=== PATIENT | male | born 1955 | race Caucasian/White ===

== ENCOUNTER → 2016-09-27 | Outpatient (CLI) | payer MEDICARE, MEDICAID ==
[~2016-09-27] MED LIST: ANTIHISTAMINE PO; BACL10TA2 PO; DILT240C PO; FLUO20CA19 PO; GABA-282 PO; HYDR-3716 PO; LEVA750T7 PO; RANI150T PO
--- NOTE | 2016-09-27 11:02 | REP ---
CERVICAL SPINE SERIES: Full cervical spine series performed with seven views obtained. There is no compression fracture. There is straightening of the normal cervical lordosis. There is limited motion with flexion and extension. Bridging osteophyte is seen at C3-4. There is mild spurring at C5-C7. There is moderate disc space narrowing at C4-5, C5-6, and C6-7. There is diffuse sclerosis and spurring at the posterior facet joints. Uncovertebral and facet spurring appears to cause mild bilateral foraminal narrowing at C4-5 and C5-6 and moderate narrowing on the left at C6-7. IMPRESSION: Degenerative changes as above. Straightening with limited motion may indicate spasm. Signed by Hema Wall MD 09/27/2016 01:13 P
--- NOTE | 2016-09-27 11:41 | REP ---
Lumbar spine seven views including flexion and extension: Vertebral body heights, interspacing alignment are normal. There is no spondylolysis. There is no spondylolisthesis. There is no listhesis on the lateral views in extension. The pedicles, facets and sacroiliac articulations are unremarkable. There is internal fixation of the pelvis on the right. Impression: Essentially negative lumbar spine. Signed by Hema Bronson MD 09/27/2016 11:33 A
== END ==
LOC: M RAD 08:46
PROVIDERS: ATTEND Neurological Surgery
DX: M47.892 Other spondylosis, cervical region (principal); M47.896 Other spondylosis, lumbar region

== ENCOUNTER → 2017-02-03 | Outpatient (REF) | payer MEDICARE, MEDICAID | LOC: M LABDRAW1 11:39 | PROVIDERS: ATTEND Physical Medicine & Rehabilitation | DX: M50.30 Other cervical disc degeneration, unspecified cervical region (principal); Z79.899 Other long term (current) drug therapy ==

== ENCOUNTER → 2017-06-28 | Outpatient (CLI) | payer MEDICARE, MEDICAID | LOC: M CLY 09:22 | DX: J44.9 Chronic obstructive pulmonary disease, unspecified (principal); R91.8 Other nonspecific abnormal finding of lung field; F34.1 Dysthymic disorder; I48.91 Unspecified atrial fibrillation; H91.93 Unspecified hearing loss, bilateral; H53.9 Unspecified visual disturbance; F17.200 Nicotine dependence, unspecified, uncomplicated; Z79.899 Other long term (current) drug therapy | CPT/HCPCS: 71046; 84443 ==

== ENCOUNTER → 2017-06-28 | Outpatient (REF) | payer MEDICARE, MEDICAID ==
[2017-06-28 12:22] LABS: BASO % 0.4 % (0.0-1.0); EOS # 0.1 10^3/uL (0.0-0.50); EOS % 1.2 % (0.0-3.0); HEMATOCRIT 45.6 % (42.0-52.0); HEMOGLOBIN 15.2 g/dl (13.5-17.5); IMMATURE GRANULOCYTE % 0.4 % (0-3.0); LYMPH # 1.8 10^3/uL (1.5-4.5); LYMPH % 21.7 % (24.0-44.0); MEAN CORPUSCULAR HEMOGLOBIN 31.6 pg (27.0-33.0); MEAN CORPUSCULAR HGB CONC 33.3 g/dl (32.0-36.5); MEAN CORPUSCULAR VOLUME 94.8 fl (80.0-96.0); MONO # 0.8 10^3/uL (0.0-0.8); MONO % 9.1 % (0.0-5.0); NEUTROPHILS # 5.6 10^3/uL (1.8-7.7); NEUTROPHILS % 67.2 % (36.0-66.0); PLATELET COUNT, AUTOMATED 275 10^3/uL (150-450); RED BLOOD COUNT 4.81 10^6/uL (4.30-6.10); RED CELL DISTRIBUTION WIDTH 13.3 % (11.5-14.5); WHITE BLOOD COUNT 8.4 10^3/uL (4.0-10.0)
[2017-06-28 12:48] LABS: ALBUMIN 4.4 GM/DL (3.2-5.2); ALBUMIN/GLOBULIN RATIO 1.33 (1.00-1.93); ALKALINE PHOSPHATASE 97 U/L (45-117); ALT/SGPT 26 U/L (12-78); ANION GAP 5 MEQ/L (8-16); AST/SGOT 17 U/L (7-37); BILIRUBIN,TOTAL 0.4 MG/DL (0.2-1.0); BLOOD UREA NITROGEN 15 MG/DL (7-18); CALCIUM LEVEL 9.2 MG/DL (8.8-10.2); CARBON DIOXIDE LEVEL 31 MEQ/L (21-32); CHLORIDE LEVEL 105 MEQ/L (98-107); CHOLESTEROL LEVEL 221 MG/DL (<200); CHOLESTEROL RISK RATIO 3.157 (<5); CREATININE FOR GFR 0.72 MG/DL (0.70-1.30); FREE T4 1.05 NG/DL (0.76-1.46); GLOMERULAR FILTRATION RATE > 60.0 (>49); GLUCOSE, FASTING 90 MG/DL (70-100); HDL CHOLESTEROL 70 MG/DL (>40); NON-HDL-C 151 MG/DL; POTASSIUM SERUM 4.4 MEQ/L (3.5-5.1); SODIUM LEVEL 141 MEQ/L (136-145); TOTAL PROTEIN 7.7 GM/DL (6.4-8.2); TRIGLYCERIDES LEVEL 140 MG/DL (<150)
== END ==
LOC: M SFHCCLAY 08:46
DX: J44.9 Chronic obstructive pulmonary disease, unspecified (principal); F34.1 Dysthymic disorder; I48.91 Unspecified atrial fibrillation; H91.93 Unspecified hearing loss, bilateral; H53.9 Unspecified visual disturbance; F17.200 Nicotine dependence, unspecified, uncomplicated; Z79.899 Other long term (current) drug therapy
CPT/HCPCS: 84443

== ENCOUNTER → 2017-07-08 | Outpatient (CLI) | payer MEDICARE, MEDICAID | LOC: M RAD 08:38 | DX: S22.000A Wedge compression fracture of unspecified thoracic vertebra, initial encounter for closed fracture (principal); X58.XXXA Exposure to other specified factors, initial encounter; Y92.9 Unspecified place or not applicable | CPT/HCPCS: 72146 ==

== ENCOUNTER → 2017-12-20 | Outpatient (REF) | payer MEDICARE, MEDICAID ==
[2017-12-27 09:46] LABS: SUMMARY SEE SEPARATE REPORT
== END ==
LOC: M LABDRAW1 12:13
DX: Z51.81 Encounter for therapeutic drug level monitoring (principal); Z79.891 Long term (current) use of opiate analgesic
CPT/HCPCS: 80307

== ENCOUNTER → 2018-03-14 | Outpatient (REF) | payer MEDICARE, MEDICAID ==
[~2018-03-14] MED LIST changes: -DILT240C PO; +DILT240C47 PO; -GABA-282 PO; +GABA-843 PO
[2018-03-14 12:13] LABS: BASO # 0.1 10^3/uL (0.0-0.2); BASO % 0.6 % (0.0-1.0); EOS # 0.1 10^3/uL (0.0-0.50); EOS % 1.1 % (0.0-3.0); HEMATOCRIT 41.6 % (42.0-52.0); HEMOGLOBIN 14.1 g/dl (13.5-17.5); LYMPH # 2.1 10^3/uL (1.5-4.5); LYMPH % 25.7 % (24.0-44.0); MEAN CORPUSCULAR HEMOGLOBIN 32.3 pg (27.0-33.0); MEAN CORPUSCULAR HGB CONC 33.9 g/dl (32.0-36.5); MEAN CORPUSCULAR VOLUME 95.4 fl (80.0-96.0); MONO # 0.9 10^3/uL (0.0-0.8); MONO % 10.4 % (0.0-5.0); NEUTROPHILS # 5.1 10^3/uL (1.8-7.7); PLATELET COUNT, AUTOMATED 232 10^3/uL (150-450); RED BLOOD COUNT 4.36 10^6/uL (4.30-6.10); WHITE BLOOD COUNT 8.3 10^3/uL (4.0-10.0)
[2018-03-14 13:13] LABS: ALT/SGPT 26 U/L (12-78); BILIRUBIN,TOTAL 0.2 MG/DL (0.2-1.0); BLOOD UREA NITROGEN 19 MG/DL (7-18); CALCIUM LEVEL 9.2 MG/DL (8.8-10.2); CARBON DIOXIDE LEVEL 27 MEQ/L (21-32); CHLORIDE LEVEL 105 MEQ/L (98-107); CHOLESTEROL LEVEL 179 MG/DL (<200); CHOLESTEROL RISK RATIO 2.632 (<5); CREATININE FOR GFR 0.79 MG/DL (0.70-1.30); FREE T4 1.11 NG/DL (0.76-1.46); GLOMERULAR FILTRATION RATE > 60.0 (>49); GLUCOSE, FASTING 93 MG/DL (70-100); HDL CHOLESTEROL 68 MG/DL (>40); LDL CHOLESTEROL 96 MG/DL (<100); NON-HDL-C 111 MG/DL; POTASSIUM SERUM 4.9 MEQ/L (3.5-5.1); SODIUM LEVEL 137 MEQ/L (136-145); TOTAL PROTEIN 6.8 GM/DL (6.4-8.2); TRIGLYCERIDES LEVEL 76 MG/DL (<150)
== END ==
LOC: M SFHCCLAY 09:38
PROVIDERS: ATTEND Nurse Practitioner Family
DX: I10 Essential (primary) hypertension (principal); F34.1 Dysthymic disorder; I48.91 Unspecified atrial fibrillation; J44.9 Chronic obstructive pulmonary disease, unspecified

== ENCOUNTER → 2018-03-23 | Outpatient (CLI) | payer MEDICARE, MEDICAID ==
--- NOTE | 2018-03-23 11:03 | REP ---
Low-dose lung cancer screening chest CT without contrast: History: Smoker. Greater than 40 pack year history. Comparison chest CT study January 14, 2016. Dose reduction was performed utilizing CARE dose with automated adjustment of the kV and MAS according to patient size; iterative reconstruction, automated exposure control, as well as adaptive dose shielding. CT findings: The lungs are hyperinflated consistent with some degree of emphysema or COPD. There is linear fibrosis in the left lower lobe which is unchanged. There is a benign stable perifissural nodule on the left in the major fissure on page 55 of 123 in series 201 of today's study. This is unchanged from January 14, 2016. There is minimal pleuroparenchymal fibrosis at the right lung apex. No new pulmonary nodule is seen. No mass lesion is observed. No endobronchial disease is appreciated. Impression: Lung-RADS category 2 benign findings. Repeat screening exam suggested 1 year. Electronically Signed by Fabio Bae MD 03/23/2018 06:04 P
== END ==
LOC: M RAD 08:49
PROVIDERS: ATTEND Nurse Practitioner Family
DX: Z12.2 Encounter for screening for malignant neoplasm of respiratory organs (principal); F17.210 Nicotine dependence, cigarettes, uncomplicated

== ENCOUNTER 2019-02-10 09:58 | Emergency (ER) | payer MEDICARE, MEDICAID ==
[~2019-02-10] VITALS: Ht 185.4 cm; Wt 70.4 kg
[2019-02-10] MEDS ORDERED: BREO1INH3 (10:15)
[2019-02-10] MEDS ORDERED: GABA600T4 (10:15)
[2019-02-10] MEDS ORDERED: TIZA4TAB4 (10:15)
[2019-02-10] MEDS ORDERED: VOLT1GEL15 TOP (10:27)
--- NOTE | 2019-02-10 11:30 | REP ---
PA CHEST WITH RIGHT RIBS: 02/10/2019. COMPARISON: Two-view chest, 06/28/2017. CLINICAL HISTORY: Right shoulder pain. FINDINGS: PA CHEST: The lung vidales hyperinflated with changes of COPD. There is some linear subsegmental atelectatic change on the right. There are old post-traumatic changes of the right posterior mid 6th and 7th ribs as before. No effusion or definite infiltrate. Heart and mediastinal contours normal. The aorta is mildly tortuous and calcified at the arch without aneurysm. There is pulmonary artery hypertension consistent with COPD. RIGHT RIBS: Posterior mid right chest, 6th and 7th healed rib fractures. No new or acute fractures. Visualized clavicle, scapula, and humerus unremarkable. Thoracic spine without acute findings. Posterior rib articulations intact. IMPRESSION: 1. No new or acute rib fractures with multiple old right rib fractures involving the posterior right 6th and 7th ribs. 2. Clavicle, scapula, and humerus grossly intact. 3. Changes of COPD with pulmonary artery hypertension and some minimal subsegmental atelectatic change right mid lung zone. Electronically Signed by Larry Savage MD 02/10/2019 07:52 P
--- NOTE | 2019-02-10 11:31 | REP ---
RIGHT SHOULDER, COMPLETE: 02/10/2019. COMPARISON: PA chest with right rib series, 02/10/2019. FINDINGS: Three views show the AC joint without widening of the joint space or elevation of the clavicle. There is no clavicular, scapular, or humeral fracture. I see no subluxation, dislocation of the humeral head. There are old healed fractures of posterior right 6th and 7th ribs in the midclavicular line. No new or acute finding. IMPRESSION: 1. Some degenerative changes at the shoulder, but no acute fracture. 2. Old healed and remodeled right rib fractures as described. Electronically Signed by Larry Savage MD 02/10/2019 07:52 P
[2019-02-10] MEDS ORDERED: LIDO5DIS41 TOP (11:44)
[2019-02-10 12:03] VITALS: BP 119/73
== END 2019-02-10 12:02 | disposition home or self-care (01) ==
LOC: M ED 09:58
DX: S46.811A Strain of other muscles, fascia and tendons at shoulder and upper arm level, right arm, initial encounter (principal); S40.011A Contusion of right shoulder, initial encounter; S20.211A Contusion of right front wall of thorax, initial encounter; Y04.2XXA Assault by strike against or bumped into by another person, initial encounter; Y92.098 Other place in other non-institutional residence as the place of occurrence of the external cause; F17.200 Nicotine dependence, unspecified, uncomplicated; F12.10 Cannabis abuse, uncomplicated; F10.10 Alcohol abuse, uncomplicated; Z87.81 Personal history of (healed) traumatic fracture; Z79.899 Other long term (current) drug therapy; Z79.51 Long term (current) use of inhaled steroids

== ENCOUNTER → 2019-05-03 | Outpatient (REF) | payer MEDICARE, MEDICAID ==
[~2019-05-03] MED LIST changes: +BREO1INH3; -FLUO20CA19 PO; +FLUO20CA22 PO; +GABA600T4; +LIDO5DIS41 TOP; +TIZA4TAB4; +VOLT1GEL15 TOP
[2019-05-03 12:43] LABS: BASO % 0.4 % (0.0-1.0); EOS # 0.1 10^3/uL (0.0-0.5); HEMATOCRIT 48.9 % (42.0-52.0); HEMOGLOBIN 15.9 g/dl (13.5-17.5); LYMPH # 2.3 10^3/uL (1.5-5.0); LYMPH % 29.8 % (24.0-44.0); MEAN CORPUSCULAR HEMOGLOBIN 31.8 pg (27.0-33.0); MEAN CORPUSCULAR HGB CONC 32.5 g/dl (32.0-36.5); MEAN CORPUSCULAR VOLUME 97.8 fl (80.0-96.0); MONO # 0.9 10^3/uL (0.0-0.8); MONO % 11.1 % (0.0-5.0); NEUTROPHILS # 4.4 10^3/uL (1.5-8.5); NEUTROPHILS % 57.4 % (36.0-66.0); PLATELET COUNT, AUTOMATED 315 10^3/uL (150-450); WHITE BLOOD COUNT 7.7 10^3/uL (4.0-10.0)
[2019-05-03 12:57] LABS: ALBUMIN 4.4 GM/DL (3.2-5.2); ALT/SGPT 27 U/L (12-78); BILIRUBIN,TOTAL 0.3 MG/DL (0.2-1.0); BLOOD UREA NITROGEN 16 MG/DL (7-18); CALCIUM LEVEL 9.6 MG/DL (8.8-10.2); CARBON DIOXIDE LEVEL 30 MEQ/L (21-32); CHLORIDE LEVEL 107 MEQ/L (98-107); CHOLESTEROL LEVEL 239 MG/DL (<200); CREATININE FOR GFR 0.82 MG/DL (0.70-1.30); GLOMERULAR FILTRATION RATE > 60.0 (>49); GLUCOSE, FASTING 105 MG/DL (70-100); HDL CHOLESTEROL 81 MG/DL (>40); LDL CHOLESTEROL 139 MG/DL (<100); NON-HDL-C 158 MG/DL; POTASSIUM SERUM 4.8 MEQ/L (3.5-5.1); SODIUM LEVEL 140 MEQ/L (136-145); TOTAL PROTEIN 7.8 GM/DL (6.4-8.2); TRIGLYCERIDES LEVEL 94 MG/DL (<150)
== END ==
LOC: M SFHCCLAY 09:00
PROVIDERS: ATTEND Nurse Practitioner Family
DX: I10 Essential (primary) hypertension (principal); F34.1 Dysthymic disorder; I48.91 Unspecified atrial fibrillation; J44.9 Chronic obstructive pulmonary disease, unspecified
CPT/HCPCS: 80053; 80061; 84439; 84443; 85025; G0103; G0463

== ENCOUNTER → 2019-05-10 | Outpatient (CLI) | payer MEDICARE, MEDICAID ==
--- NOTE | 2019-05-10 08:39 | REPVR ---
PROCEDURE INFORMATION: Exam: CT Lung Cancer Screening Exam date and time: 05/10/2019 7:34 AM Age: 64 years old 64 years year old. Clinical indication: Screening exam; Additional info: Nicotine dependence Additional history: Asymptomatic patient meeting high-risk criteria for lung screening. Follow-up. TECHNIQUE: Imaging protocol: CT volumetric low-dose chest CT without contrast. Lung cancer screening. CTDI volume: 1.1 Total DLP: 47.3 Radiation optimization: All CT scans at this facility use at least one of these dose optimization techniques: automated exposure control; mA and/or kV adjustment per patient size (includes targeted exams where dose is matched to clinical indication); or iterative reconstruction. COMPARISON: No relevant prior studies available. FINDINGS: Lungs: Centrilobular emphysema. Linear atelectasis or scarring in the right upper and left lower lobes. Bibasilar dependent and linear atelectasis. Lung nodules: Nodule 1: Left lung. Stable 0.6 x 0.3 cm solid nodule. Series 201, image 54. Nodule 2: Left lung. Interval increase in the size of a 4-5 mm solid nodule in the left lower lobe. Series 201, image 76. Up to 5 most suspicious nodules are described. Pleural space: Unremarkable. No pneumothorax. No pleural effusion. Heart: Unremarkable. No cardiomegaly. No pericardial effusion. Aorta: Unremarkable. No aortic aneurysm. Lymph nodes: Unremarkable. No enlarged lymph nodes. Bones/joints: Unremarkable. No acute fracture. Soft tissues: Unremarkable. IMPRESSION: Interval increase in the size of a 4-5 mm solid nodule in the left lower lobe. Series 201, image 76. Electronically signed by: Ranjith Isbell On 05/10/2019 08:38:54 AM
== END ==
LOC: M RAD 07:32
PROVIDERS: ATTEND Physician Assistant
DX: Z87.891 Personal history of nicotine dependence (principal)

== ENCOUNTER 2019-11-15 09:02 | Emergency (ER) | payer MEDICARE, MEDICAID ==
[~2019-11-15] VITALS: Ht 185.4 cm; Wt 69.5 kg
[2019-11-15] MEDS ORDERED: PROAAER10 (09:13)
--- NOTE | 2019-11-15 11:32 | REPVR ---
PROCEDURE INFORMATION: Exam: XR Lumbosacral Spine, 4 or 5 Views Exam date and time: 11/15/2019 11:14 AM Age: 64 years old Clinical indication: Low back pain; Additional info: Low back pain; Lifting injury TECHNIQUE: Imaging protocol: XR of the lumbosacral spine, 4 or 5 views. COMPARISON: CR Spine,LS wBENDING MIN 6 VIEWS 09/27/2016 9:33 AM FINDINGS: Vertebrae: Degenerative change of the spine. Mild degenerative endplate changes. Normal alignment. Chronic mild anterior wedging of the T12 vertebral body. No acute fracture is identified. Mild posterior facet joint arthropathy. Other bones/joints: Fixation hardware associated with the right acetabulum. Soft tissues: Unremarkable. Vasculature: Atherosclerotic vascular calcifications. IMPRESSION: No acute lumbar spine abnormality is identified. Electronically signed by: Joanne Funez On 11/15/2019 11:32:08 AM
[2019-11-15] MEDS ORDERED: CODE30TA PO (11:53)
[2019-11-15] MEDS ORDERED: TIZA2CAP PO (11:53)
[2019-11-15 11:55] VITALS: BP 116/74
== END 2019-11-15 12:04 | disposition home or self-care (01) ==
LOC: M ED 09:02
DX: S39.012A Strain of muscle, fascia and tendon of lower back, initial encounter (principal); X50.0XXA Overexertion from strenuous movement or load, initial encounter; Y92.89 Other specified places as the place of occurrence of the external cause; I10 Essential (primary) hypertension; M54.9 Dorsalgia, unspecified; G89.29 Other chronic pain; F41.9 Anxiety disorder, unspecified; F32.9 Major depressive disorder, single episode, unspecified; F17.210 Nicotine dependence, cigarettes, uncomplicated; Z79.899 Other long term (current) drug therapy; Z79.51 Long term (current) use of inhaled steroids

== ENCOUNTER → 2020-01-07 | Outpatient (CLI) | payer MEDICARE, MEDICAID ==
[~2020-01-07] MED LIST changes: +CODE30TA PO; +PROAAER10; +TIZA2CAP PO
--- NOTE | 2020-01-07 08:55 | REP ---
INDICATION: OTHER NONSPECIFIC ABN FINDINGS OF LUNG FIELD FILE ROOM. COMPARISON: Low-dose lung screening CT 05/10/2019, 03/23/2018 TECHNIQUE: Standard noncontrast CT chest with coronal and sagittal reconstructions. FINDINGS: Lung vidales again show hyperinflation and some underlying interstitial changes suggesting COPD, stable. Basilar curvilinear fibrotic change in the left lower lobe medial basal segment and lesser fibrosis in the right medial base. All of this is stable. There is no effusion parenchymal mass. On image 78 there is a 3.8 mm nodular density that may reflect a stable nodule in the left lower lobe seen on image 76 on the previous study versus a small endobronchial secretion. It is unchanged for the past 22 months. The previous small density in image 60 in the May 2019 study is no longer evident on today's exam. On image 55 there is a stable 6 x 3 mm nodule superior segment left lower lobe. Bochdalek's hernias noted posteriorly in the lower lung zones bilaterally left larger than right and stable. The heart is not enlarged and there is no specific chamber enlargement there are some coronary artery calcifications evident. No pericardial calcifications are seen. Atherosclerotic calcifications of the aorta without aneurysm. No pathologic size lymphadenopathy in the mediastinum, izzy, axilla or supraclavicular region. Bones show some degenerative osteophytes in the spine with wedge compression deformity grade 4 and focal kyphosis at T7, grossly unchanged. There is superior endplate depressions at L1 minimally at L2 anteriorly. Sternum, manubrium, visible clavicles, scapula, ribs and humeral heads were unremarkable. No hiatal hernia. That portion of liver included was without a focal lesion no splenomegaly. Adrenal glands and upper poles of kidneys intact no upper abdominal adenopathy or mass visible IMPRESSION: 1. There are 2 stable nodules in the left lower lobe at 3.8 and 6 mm in diameter and 1 nodular density resolved from the previous study May 2019. 2. Underlying COPD with basilar fibrosis, Bochdalek's hernias in the lower lung zones and bullous emphysematous changes. 3. Degenerative changes in the spine and old stable compression deformities. <Electronically signed by Larry Savage > 01/07/20 [id number]
== END ==
LOC: M RAD 08:00
PROVIDERS: ATTEND Physician Assistant
DX: R91.8 Other nonspecific abnormal finding of lung field (principal)

== ENCOUNTER → 2020-05-14 | Outpatient (REF) | payer MEDICARE, MEDICAID ==
[~2020-05-14] MED LIST changes: +GABA-282 PO; -GABA-843 PO
[2020-05-14 12:16] LABS: BASO # 0.1 10^3/uL (0.0-0.2); BASO % 0.8 % (0.0-1.0); EOS # 0.2 10^3/uL (0.0-0.5); EOS % 2.4 % (0.0-3.0); HEMATOCRIT 47.5 % (42.0-52.0); HEMOGLOBIN 15.3 g/dl (13.5-17.5); LYMPH # 1.8 10^3/uL (1.5-5.0); LYMPH % 24.5 % (24.0-44.0); MEAN CORPUSCULAR HEMOGLOBIN 31.2 pg (27.0-33.0); MEAN CORPUSCULAR HGB CONC 32.2 g/dl (32.0-36.5); MEAN CORPUSCULAR VOLUME 96.7 fl (80.0-96.0); MONO # 0.9 10^3/uL (0.0-0.8); NEUTROPHILS # 4.3 10^3/uL (1.5-8.5); NEUTROPHILS % 59.2 % (36.0-66.0); PLATELET COUNT, AUTOMATED 266 10^3/uL (150-450); RED BLOOD COUNT 4.91 10^6/uL (4.30-6.10); WHITE BLOOD COUNT 7.2 10^3/uL (4.0-10.0)
[2020-05-14 12:42] LABS: ALBUMIN 3.9 GM/DL (3.2-5.2); ALT/SGPT 23 U/L (12-78); BILIRUBIN,TOTAL 0.3 MG/DL (0.2-1.0); BLOOD UREA NITROGEN 8 MG/DL (7-18); CALCIUM LEVEL 9.5 MG/DL (8.8-10.2); CARBON DIOXIDE LEVEL 25 MEQ/L (21-32); CHLORIDE LEVEL 105 MEQ/L (98-107); CHOLESTEROL LEVEL 178 MG/DL (<200); CHOLESTEROL RISK RATIO 2.738 (<5); CREATININE FOR GFR 0.88 MG/DL (0.70-1.30); FREE T4 1.09 NG/DL (0.76-1.46); GLOMERULAR FILTRATION RATE > 60.0 (>49); GLUCOSE, FASTING 91 MG/DL (70-100); HDL CHOLESTEROL 65 MG/DL (>40); LDL CHOLESTEROL 99 MG/DL (<100); NON-HDL-C 113 MG/DL; POTASSIUM SERUM 4.9 MEQ/L (3.5-5.1); SODIUM LEVEL 137 MEQ/L (136-145); TOTAL PROTEIN 7.3 GM/DL (6.4-8.2); TRIGLYCERIDES LEVEL 71 MG/DL (<150)
== END ==
LOC: M SFHCCLAY 08:11
PROVIDERS: ATTEND Nurse Practitioner Family
DX: M54.2 Cervicalgia (principal); F34.1 Dysthymic disorder; I10 Essential (primary) hypertension; I48.91 Unspecified atrial fibrillation; J44.9 Chronic obstructive pulmonary disease, unspecified; F17.200 Nicotine dependence, unspecified, uncomplicated
CPT/HCPCS: 80053; 80061; 84439; 84443; 85025; G0463

== ENCOUNTER → 2020-05-21 | Outpatient (CLI) | payer MEDICARE ==
--- NOTE | 2020-05-21 11:01 | REP ---
INDICATION: SMOKER, LUNG CANCER SCREENING COMPARISON: 05/10/2019, 03/23/2018 TECHNIQUE: Axial noncontrast images from the thoracic inlet to the upper abdomen using low-dose lung screening technique (LDCT). FINDINGS: There is a new 4 mm noncalcified nodule in the anterior right upper lobe (series 201; image 39). Previously noted 4 and 3.5 mm mm nodular densities in the left lower lobe and left upper lobe, respectively which represented inspissated material within small bronchi have resolved. No consolidation, further nodule or mass lesion. No pleural effusion. No pneumothorax. Chronic emphysematous changes with scattered scarring and bronchiectasis again noted. Posterior left basilar atelectasis identified on current examination. IMPRESSION: 1. New 4 mm noncalcified nodule in the anterior right upper lobe warrants six-month follow-up examination. 2. Previously noted densities have resolved and likely represented small amount of inspissated endobronchial material. 3. Small amount of posterior basilar dependent atelectasis in the left lower lobe. <Electronically signed by Osmani Wilkinson > 05/21/20 [id number]
== END ==
LOC: M RAD 09:27
PROVIDERS: ATTEND Nurse Practitioner Family
DX: Z12.2 Encounter for screening for malignant neoplasm of respiratory organs (principal); R91.8 Other nonspecific abnormal finding of lung field; F17.210 Nicotine dependence, cigarettes, uncomplicated

== ENCOUNTER 2020-11-02 12:29 | Emergency (ER) | payer MEDICARE, MEDICAID ==
[~2020-11-02] VITALS: Ht 185.4 cm; Wt 71.2 kg
[~2020-11-02 12:29] MED LIST changes: +TIZA10TA; -TIZA4TAB4
[2020-11-02 13:47] LABS: BASO % 0.3 % (0.0-1.0); EOS # 0.1 10^3/uL (0.0-0.5); EOS % 1.5 % (0.0-3.0); HEMATOCRIT 40.2 % (42.0-52.0); HEMOGLOBIN 13.2 g/dl (13.5-17.5); LYMPH # 1.5 10^3/uL (1.5-5.0); LYMPH % 16.9 % (24.0-44.0); MEAN CORPUSCULAR HEMOGLOBIN 32.1 pg (27.0-33.0); MEAN CORPUSCULAR HGB CONC 32.8 g/dl (32.0-36.5); MEAN CORPUSCULAR VOLUME 97.8 fl (80.0-96.0); MONO # 0.9 10^3/uL (0.0-0.8); MONO % 10.4 % (2.0-8.0); NEUTROPHILS # 6.2 10^3/uL (1.5-8.5); NEUTROPHILS % 70.6 % (36.0-66.0); PLATELET COUNT, AUTOMATED 239 10^3/uL (150-450); RED BLOOD COUNT 4.11 10^6/uL (4.30-6.10); WHITE BLOOD COUNT 8.8 10^3/uL (4.0-10.0)
[2020-11-02 14:13] LABS: BLOOD UREA NITROGEN 12 MG/DL (7-18); CALCIUM LEVEL 8.8 MG/DL (8.8-10.2); CARBON DIOXIDE LEVEL 30 MEQ/L (21-32); CHLORIDE LEVEL 111 MEQ/L (98-107); CREATININE FOR GFR 0.66 MG/DL (0.70-1.30); GLOMERULAR FILTRATION RATE > 60.0 (>49); GLUCOSE, FASTING 108 MG/DL (70-100); MAGNESIUM LEVEL 2.2 MG/DL (1.8-2.4); POTASSIUM SERUM 4.3 MEQ/L (3.5-5.1); SODIUM LEVEL 144 MEQ/L (136-145)
[2020-11-02 14:45] VITALS: BP 130/68
== END 2020-11-02 15:13 | disposition home or self-care (01) ==
LOC: M ED 12:29
DX: F41.0 Panic disorder [episodic paroxysmal anxiety] (principal); E78.5 Hyperlipidemia, unspecified; G62.9 Polyneuropathy, unspecified; Z79.899 Other long term (current) drug therapy; F17.210 Nicotine dependence, cigarettes, uncomplicated; F12.20 Cannabis dependence, uncomplicated

== ENCOUNTER → 2021-02-25 | Outpatient (REF) | payer MEDICARE, MEDICAID | LOC: M SFHCCLAY 11:01 | PROVIDERS: ATTEND Nurse Practitioner Family | DX: R06.02 Shortness of breath (principal) | CPT/HCPCS: 87798; 87804; G0463 ==

== ENCOUNTER 2021-06-08 13:50 | Emergency (ER) | payer MEDICARE, MEDICAID ==
[~2021-06-08] VITALS: Ht 185.4 cm; Wt 63.6 kg
[2021-06-08 13:55] VITALS: BP 122/84
== END 2021-06-08 17:36 | disposition left against medical advice (07) ==
LOC: M ED 13:50
DX: Z53.21 Procedure and treatment not carried out due to patient leaving prior to being seen by health care provider (principal)

== ENCOUNTER 2021-07-23 17:40 | Inpatient (IN) | payer MEDICARE, MEDICAID ==
[~2021-07-23] VITALS: Ht 182.9 cm; Wt 61.9 kg
[~2021-07-23 17:40] MED LIST changes: +NEUR600T PO; +TREL1AER PO
[2021-07-23] MEDS: METOPROLOL 5 MG/5 ML VIAL IV SCH ×3 (18:43→18:59)
[2021-07-23 18:47] LABS: VENOUS BASE EXCESS 3.3 (-2.0-2.0); VENOUS HCO3 31.2 MEQ/L (23.0-27.0); VENOUS O2 SATURATION 71.8 % (60.0-80.0); VENOUS PARTIAL PRESSURE CO2 61.3 mmHg (38.0-50.0); VENOUS PARTIAL PRESSURE O2 40.3 mmHg (30.0-50.0); VENOUS PH 7.324 UNITS (7.330-7.430); VENOUS STANDARD HCO3 26.7 MEQ/L
[2021-07-23 18:52] LABS: BASO % 0.4 % (0.0-1.0); EOS # 0.1 10^3/uL (0.0-0.5); EOS % 0.5 % (0.0-3.0); HEMATOCRIT 44.8 % (42.0-52.0); HEMOGLOBIN 14.3 g/dl (13.5-17.5); LYMPH # 1.2 10^3/uL (1.5-5.0); LYMPH % 12.9 % (24.0-44.0); MEAN CORPUSCULAR HEMOGLOBIN 29.4 pg (27.0-33.0); MEAN CORPUSCULAR HGB CONC 31.9 g/dl (32.0-36.5); MONO # 1.2 10^3/uL (0.0-0.8); MONO % 12.4 % (2.0-8.0); NEUTROPHILS % 73.5 % (36.0-66.0); PLATELET COUNT, AUTOMATED 328 10^3/uL (150-450); RED BLOOD COUNT 4.87 10^6/uL (4.30-6.10); WHITE BLOOD COUNT 9.6 10^3/uL (4.0-10.0)
[2021-07-23] MEDS ORDERED: IPRATROPIUM 0.5MG/ALBUTEROL 2.5MG INH SOL UD 3ML (DUONEB) NEB ONE (18:55)
[2021-07-23 19:06] LABS: INR 1.02; PROTHROMBIN TIME 13.8 SECONDS (12.7-14.5)
[2021-07-23 19:07] LABS: PARTIAL THROMBOPLASTIN TIME 31.7 SECONDS (25.9-37.0)
[2021-07-23 19:09] LABS: D-DIMER QUANT 778.32 ng/ml (<500)
[2021-07-23 19:45] LABS: ALT/SGPT 17 U/L (12-78); BILIRUBIN,DIRECT < 0.1 MG/DL (0.0-0.2); BILIRUBIN,TOTAL 0.4 MG/DL (0.2-1.0); BLOOD UREA NITROGEN 13 MG/DL (7-18); CALCIUM LEVEL 8.9 MG/DL (8.8-10.2); CARBON DIOXIDE LEVEL 33 MEQ/L (21-32); CHLORIDE LEVEL 103 MEQ/L (98-107); CREATININE FOR GFR 0.68 MG/DL (0.70-1.30); FREE T4 1.35 NG/DL (0.76-1.46); GLOMERULAR FILTRATION RATE > 60.0 (>49); GLUCOSE, FASTING 100 MG/DL (70-100); NT-PRO BNP 1391 PG/ML (<125); POTASSIUM SERUM 4.2 MEQ/L (3.5-5.1); SODIUM LEVEL 139 MEQ/L (136-145); TOTAL PROTEIN 7.2 GM/DL (6.4-8.2)
[2021-07-23] MEDS ORDERED: ISOVUE-370 76% 100ML VIAL As Ordered ONE (19:53)
[2021-07-23] MEDS ORDERED: DIGOXIN INJ 0.5 MG/2 ML AMP (J1160) As Ordered ONE ×2 (21:37→21:40)
[2021-07-23] MEDS ORDERED: ACETAMINOPHEN TAB 650MG DOSE (2X325MG) PO PRN (22:20)
[2021-07-23] MEDS ORDERED: ALBUTEROL SULFATE 2.5 MG/0.5 ML INH NEB SOLN NEB PRN (22:20)
[2021-07-23] MEDS ORDERED: TREL1AER INH (22:33)
[2021-07-23] MEDS ORDERED: GABA600T4 PO (22:33)
[2021-07-23] MEDS ORDERED: PROAAER10 INH (22:33)
[2021-07-23] MEDS ORDERED: HOME MED LIST COMPLETE! XX SCH (22:35)
[2021-07-23] MEDS ORDERED: methylPREDNISolone 125MG 2ML VIAL IV SCH (23:00)
[2021-07-23 23:34] VITALS: BP 118/78
[2021-07-24] VITALS (8 sets, daily range): BP systolic 104–127; BP diastolic 61–84; O2SAT 91–97
[2021-07-24] MEDS ORDERED: LEVALBUTEROL 1.25 MG/0.5 ML CONCENTRATE NEB INH PRN (01:05)
[2021-07-24] MEDS ORDERED: BENZONATATE 100MG CAPSULE PO PRN (01:05)
[2021-07-24] MEDS ORDERED: PILL CUTTER 1 EACH XX PRN (01:15)
[2021-07-24] MEDS ORDERED: METOPROLOL TART 25 MG TABLET PO ONE (01:30)
[2021-07-24] MEDS: IPRATROPIUM 0.02% SOLN 0.5MG 2.5ML NEB INH SCH ×4 (02:00→20:00)
[2021-07-24] MEDS ORDERED: IPRATROPIUM 0.5MG/ALBUTEROL 2.5MG INH SOL UD 3ML (DUONEB) NEB SCH (02:00)
[2021-07-24] MEDS: LEVALBUTEROL 1.25 MG/0.5 ML CONCENTRATE NEB INH SCH ×4 (02:00→20:00)
[2021-07-24] MEDS ORDERED: SODIUM CHLORIDE 0.9% INJ 10 ML SYR IV ONE (03:00)
[2021-07-24] MEDS ORDERED: REMDESIVIR 200 MG in NS 250 ML IV ONE (03:00)
[2021-07-24] MEDS ORDERED: DIGOXIN 0.25 MG TAB PO STA (04:06)
[2021-07-24 07:44] LABS: C REACTIVE PROTEIN QUANTITATIV 5.09 MG/DL (0.00-0.30)
[2021-07-24] MEDS ORDERED: METOPROLOL TART 25 MG TABLET PO SCH (09:00)
[2021-07-24] MEDS ORDERED: ENOXAPARIN 40MG/0.4ML SYRINGE (J1650 PER 10MG) SC SCH (09:00)
[2021-07-24] MEDS ORDERED: GABAPENTIN 300 MG CAP PO SCH (09:00)
[2021-07-24] MEDS: PANTOPRAZOLE 40MG TAB (PROTONIX) PO SCH (09:35)
[2021-07-24] MEDS: APIXABAN 5 MG TAB (ELIQUIS) PO SCH ×2 (09:35→20:36)
[2021-07-24] MEDS: METOPROLOL 5 MG/5 ML VIAL IV SCH ×2 (10:55→11:00)
[2021-07-24] MEDS: NICOTINE 21MG/24HR 1 EA TRANSDERMAL TD SCH (12:41)
[2021-07-24] MEDS: METOPROLOL TART 12.5 MG PER 1/2 TAB PO SCH ×3 (12:42→23:14)
[2021-07-24] MEDS: SYMBICORT 160/4.5MCG INHALER 6GM INH SCH ×2 (13:07→23:23)
[2021-07-24] MEDS: TIOTROPIUM INHALER/CAPSULE (SPIRIVA) INH SCH (13:07)
[2021-07-24] MEDS: GABAPENTIN 300 MG CAP PO SCH ×2 (16:05→20:36)
[2021-07-24] MEDS ORDERED: ISOVUE-370 76% 100ML VIAL As Ordered ONE (19:47)
[2021-07-25] VITALS (9 sets, daily range): BP systolic 95–122; BP diastolic 57–74; O2SAT 92–98
[2021-07-25] MEDS: IPRATROPIUM 0.02% SOLN 0.5MG 2.5ML NEB INH SCH ×2 (01:40→08:00)
[2021-07-25] MEDS: LEVALBUTEROL 1.25 MG/0.5 ML CONCENTRATE NEB INH SCH ×2 (01:40→08:00)
[2021-07-25] MEDS: REMDESIVIR 100 MG in NS 250 ML IV SCH (02:27)
[2021-07-25] MEDS: SODIUM CHLORIDE 0.9% INJ 10 ML SYR IV SCH (03:45)
[2021-07-25] MEDS: METOPROLOL TART 12.5 MG PER 1/2 TAB PO SCH ×3 (05:10→16:56)
[2021-07-25] MEDS: PANTOPRAZOLE 40MG TAB (PROTONIX) PO SCH (08:25)
[2021-07-25] MEDS: GABAPENTIN 300 MG CAP PO SCH ×3 (08:25→20:35)
[2021-07-25] MEDS: NICOTINE 21MG/24HR 1 EA TRANSDERMAL TD SCH (08:26)
[2021-07-25] MEDS: APIXABAN 5 MG TAB (ELIQUIS) PO SCH (08:26)
[2021-07-25 08:27] LABS: ALBUMIN 2.4 GM/DL (3.2-5.2); ALT/SGPT 14 U/L (12-78); BILIRUBIN,DIRECT < 0.1 MG/DL (0.0-0.2); BILIRUBIN,TOTAL 0.1 MG/DL (0.2-1.0); BLOOD UREA NITROGEN 19 MG/DL (7-18); CALCIUM LEVEL 9.2 MG/DL (8.8-10.2); CARBON DIOXIDE LEVEL 27 MEQ/L (21-32); CHLORIDE LEVEL 106 MEQ/L (98-107); CREATININE FOR GFR 0.57 MG/DL (0.70-1.30); GLOMERULAR FILTRATION RATE > 60.0 (>49); GLUCOSE, FASTING 98 MG/DL (70-100); POTASSIUM SERUM 4.2 MEQ/L (3.5-5.1); SODIUM LEVEL 138 MEQ/L (136-145); TOTAL PROTEIN 6.5 GM/DL (6.4-8.2)
[2021-07-25] MEDS: TIOTROPIUM INHALER/CAPSULE (SPIRIVA) INH SCH (08:30)
[2021-07-25] MEDS: SYMBICORT 160/4.5MCG INHALER 6GM INH SCH ×2 (08:30→19:31)
[2021-07-25 09:32] LABS: BASO % 0.1 % (0.0-1.0); HEMATOCRIT 45.4 % (42.0-52.0); HEMOGLOBIN 13.9 g/dl (13.5-17.5); LYMPH # 1.4 10^3/uL (1.5-5.0); LYMPH % 8.6 % (24.0-44.0); MEAN CORPUSCULAR HEMOGLOBIN 28.6 pg (27.0-33.0); MEAN CORPUSCULAR HGB CONC 30.6 g/dl (32.0-36.5); MEAN CORPUSCULAR VOLUME 93.4 fl (80.0-96.0); MONO # 1.4 10^3/uL (0.0-0.8); MONO % 8.6 % (2.0-8.0); NEUTROPHILS # 12.9 10^3/uL (1.5-8.5); NEUTROPHILS % 82.2 % (36.0-66.0); PLATELET COUNT, AUTOMATED 369 10^3/uL (150-450); RED BLOOD COUNT 4.86 10^6/uL (4.30-6.10); WHITE BLOOD COUNT 15.7 10^3/uL (4.0-10.0)
[2021-07-25 09:57] LABS: HEMOGLOBIN A1c 6.1 %
[2021-07-25] MEDS: OLANZapine ORAL DISINTEGRATING TAB 5MG PO PRN (12:52)
[2021-07-25] MEDS: DIGOXIN 0.25 MG TAB PO SCH ×2 (15:59→20:35)
[2021-07-25] MEDS ORDERED: SODIUM CHLORIDE 0.9% 250ML IV ONE (20:50)
[2021-07-26] VITALS (7 sets, daily range): BP systolic 98–155; BP diastolic 60–97; O2SAT 96–97
[2021-07-26] MEDS: DIGOXIN 0.25 MG TAB PO SCH (03:15)
[2021-07-26] MEDS: REMDESIVIR 100 MG in NS 250 ML IV SCH (03:15)
[2021-07-26] MEDS: SODIUM CHLORIDE 0.9% INJ 10 ML SYR IV SCH (04:21)
[2021-07-26] MEDS: METOPROLOL TART 12.5 MG PER 1/2 TAB PO SCH ×2 (05:29)
[2021-07-26 08:07] LABS: BASO % 0.1 % (0.0-1.0); HEMATOCRIT 40.8 % (42.0-52.0); HEMOGLOBIN 12.6 g/dl (13.5-17.5); LYMPH % 8.2 % (24.0-44.0); MEAN CORPUSCULAR HEMOGLOBIN 28.9 pg (27.0-33.0); MEAN CORPUSCULAR HGB CONC 30.9 g/dl (32.0-36.5); MEAN CORPUSCULAR VOLUME 93.6 fl (80.0-96.0); MONO # 1.1 10^3/uL (0.0-0.8); MONO % 8.6 % (2.0-8.0); NEUTROPHILS # 10.4 10^3/uL (1.5-8.5); NEUTROPHILS % 82.7 % (36.0-66.0); PLATELET COUNT, AUTOMATED 301 10^3/uL (150-450); RED BLOOD COUNT 4.36 10^6/uL (4.30-6.10); WHITE BLOOD COUNT 12.6 10^3/uL (4.0-10.0)
[2021-07-26 08:34] LABS: ALBUMIN 2.5 GM/DL (3.2-5.2); ALT/SGPT 15 U/L (12-78); BILIRUBIN,TOTAL 0.2 MG/DL (0.2-1.0); BLOOD UREA NITROGEN 21 MG/DL (7-18); CALCIUM LEVEL 9.2 MG/DL (8.8-10.2); CARBON DIOXIDE LEVEL 31 MEQ/L (21-32); CHLORIDE LEVEL 106 MEQ/L (98-107); CREATININE FOR GFR 0.68 MG/DL (0.70-1.30); GLOMERULAR FILTRATION RATE > 60.0 (>49); GLUCOSE, FASTING 107 MG/DL (70-100); MAGNESIUM LEVEL 2.2 MG/DL (1.8-2.4); POTASSIUM SERUM 4.3 MEQ/L (3.5-5.1); SODIUM LEVEL 143 MEQ/L (136-145); TOTAL PROTEIN 6.3 GM/DL (6.4-8.2)
[2021-07-26] MEDS: SYMBICORT 160/4.5MCG INHALER 6GM INH SCH (08:54)
[2021-07-26] MEDS: TIOTROPIUM INHALER/CAPSULE (SPIRIVA) INH SCH (08:55)
[2021-07-26] MEDS ORDERED: DIGOXIN 0.25 MG TAB PO SCH (09:00)
[2021-07-26] MEDS: NICOTINE 21MG/24HR 1 EA TRANSDERMAL TD SCH (09:22)
[2021-07-26] MEDS: GABAPENTIN 300 MG CAP PO SCH (09:22)
[2021-07-26] MEDS: PANTOPRAZOLE 40MG TAB (PROTONIX) PO SCH (09:23)
[2021-07-26] MEDS: OLANZapine ORAL DISINTEGRATING TAB 5MG PO PRN (09:34)
== END 2021-07-26 12:52 | disposition left against medical advice (07) | DRG 178 ==
LOC: M ED 17:40 → M ED INP 22:30 → M 4MAIN 23:34
PROVIDERS: ADMIT Internal Medicine; ATTEND Internal Medicine Nephrology
PROC: XW033E5 Introduction of Remdesivir Anti-infective into Peripheral Vein, Percutaneous Approach, New Technology Group 5 (ICD-10-PCS; principal; 2021-07-23)
PROC: 3E0333Z Introduction of Anti-inflammatory into Peripheral Vein, Percutaneous Approach (ICD-10-PCS; 2021-07-23)
DX: U07.1 COVID-19 (principal); I48.92 Unspecified atrial flutter; E46 Unspecified protein-calorie malnutrition; Z68.1 Body mass index [BMI] 19.9 or less, adult; I48.0 Paroxysmal atrial fibrillation; C32.8 Malignant neoplasm of overlapping sites of larynx; J44.9 Chronic obstructive pulmonary disease, unspecified; I10 Essential (primary) hypertension; F32.A Depression, unspecified; M54.2 Cervicalgia; I16.0 Hypertensive urgency; F17.200 Nicotine dependence, unspecified, uncomplicated; Z66 Do not resuscitate; Z79.899 Other long term (current) drug therapy; Z91.14 Patient's other noncompliance with medication regimen; Z85.828 Personal history of other malignant neoplasm of skin

== ENCOUNTER 2021-07-26 14:32 | Inpatient (IN) | payer MEDICARE, MEDICAID ==
[~2021-07-26] VITALS: Ht 185.4 cm; Wt 65.2 kg
[~2021-07-26 14:32] MED LIST changes: +GABA600T4 PO; +PROAAER10 INH; +TREL1AER INH
[2021-07-26] MEDS ORDERED: HOME MED LIST COMPLETE! XX SCH (15:20)
[2021-07-26] MEDS: METOPROLOL 5 MG/5 ML VIAL IV SCH ×2 (15:22→15:36)
[2021-07-26] MEDS ORDERED: METOPROLOL TART 25 MG TABLET PO ONE (15:35)
[2021-07-26] MEDS ORDERED: ACETAMINOPHEN TAB 650MG DOSE (2X325MG) PO PRN (17:10)
[2021-07-26] MEDS ORDERED: LEVALBUTEROL HFA 45MCG/ACT 15 GM INHALER INH PRN (17:10)
[2021-07-26] MEDS ORDERED: LORazepam 2 MG TAB PO PRN (17:40)
[2021-07-26 17:48] VITALS: BP 83/66
[2021-07-26 18:00] VITALS: BP 82/66
[2021-07-26] MEDS ORDERED: METOPROLOL TART 25 MG TABLET PO SCH (18:00)
[2021-07-26 18:31] VITALS: O2SAT 94
[2021-07-26] MEDS ORDERED: NS 1,000 ML IV ONE (18:35)
[2021-07-26] MEDS: THIAMINE 100 MG TAB PO SCH (18:45)
[2021-07-26 19:20] LABS: INR 1.09; PROTHROMBIN TIME 14.5 SECONDS (12.7-14.5)
[2021-07-26 19:21] LABS: PARTIAL THROMBOPLASTIN TIME 32.1 SECONDS (25.9-37.0)
[2021-07-26 19:23] LABS: D-DIMER QUANT 738.24 ng/ml (<500)
[2021-07-26 19:33] LABS: C REACTIVE PROTEIN QUANTITATIV 1.74 MG/DL (0.00-0.30)
[2021-07-26] MEDS: ADVAIR HFA 230/21MCG INHALER INH SCH (19:59)
[2021-07-26 20:00] VITALS: BP 121/58
[2021-07-26] MEDS: GABAPENTIN 300 MG CAP PO SCH (20:22)
[2021-07-26 20:42] VITALS: BP 107/73
[2021-07-26] MEDS: VERAPAMIL 80MG TABLET PO SCH (22:09)
[2021-07-26] MEDS ORDERED: NS 1,000 ML IV SCH (23:00)
[2021-07-27 04:00] VITALS: BP 142/70
[2021-07-27 04:24] VITALS: BP 142/70
[2021-07-27 06:12] VITALS: BP 136/85
[2021-07-27 06:14] VITALS: BP 136/85
[2021-07-27] MEDS: VERAPAMIL 80MG TABLET PO SCH (06:14)
[2021-07-27 08:00] VITALS: BP 114/78
[2021-07-27] MEDS ORDERED: TIOTROPIUM INHALER/CAPSULE (SPIRIVA) INH SCH (08:00)
[2021-07-27] MEDS: ADVAIR HFA 230/21MCG INHALER INH SCH (08:00)
[2021-07-27 08:17] LABS: BASO % 0.1 % (0.0-1.0); HEMATOCRIT 40.8 % (42.0-52.0); HEMOGLOBIN 12.8 g/dl (13.5-17.5); LYMPH # 1.2 10^3/uL (1.5-5.0); LYMPH % 10.5 % (24.0-44.0); MEAN CORPUSCULAR HGB CONC 31.4 g/dl (32.0-36.5); MEAN CORPUSCULAR VOLUME 92.5 fl (80.0-96.0); MONO # 1.1 10^3/uL (0.0-0.8); MONO % 9.6 % (2.0-8.0); NEUTROPHILS % 78.9 % (36.0-66.0); PLATELET COUNT, AUTOMATED 338 10^3/uL (150-450); RED BLOOD COUNT 4.41 10^6/uL (4.30-6.10); WHITE BLOOD COUNT 11.4 10^3/uL (4.0-10.0)
[2021-07-27] MEDS: THIAMINE 100 MG TAB PO SCH (08:31)
[2021-07-27] MEDS: GABAPENTIN 300 MG CAP PO SCH (08:31)
[2021-07-27 08:44] LABS: BLOOD UREA NITROGEN 27 MG/DL (7-18); CALCIUM LEVEL 9.6 MG/DL (8.8-10.2); CARBON DIOXIDE LEVEL 32 MEQ/L (21-32); CHLORIDE LEVEL 103 MEQ/L (98-107); GLOMERULAR FILTRATION RATE > 60.0 (>49); GLUCOSE, FASTING 101 MG/DL (70-100); MAGNESIUM LEVEL 2.4 MG/DL (1.8-2.4); POTASSIUM SERUM 4.6 MEQ/L (3.5-5.1); SODIUM LEVEL 140 MEQ/L (136-145)
[2021-07-27 08:47] LABS: AMPHETAMINES LEVEL URINE NEGATIVE (NEGATIVE); BARBITURATES URINE NEGATIVE (NEGATIVE); BENZODIAZEPINES URINE NEGATIVE (NEGATIVE); CANNABINOIDS URINE NEGATIVE (NEGATIVE); COCAINE METABOLITE URINE NEGATIVE (NEGATIVE); METHADONE URINE NEGATIVE (NEGATIVE); OPIATES URINE NEGATIVE (NEGATIVE); PHENCYCLIDINE URINE NEGATIVE (NEGATIVE)
[2021-07-27] MEDS ORDERED: DIGOXIN 0.25 MG TAB PO SCH (09:00)
[2021-07-27] MEDS ORDERED: MULTIVITAMINS/MINERALS THERAP 1 TAB PO SCH (09:00)
[2021-07-27] MEDS ORDERED: NICOTINE 21MG/24HR 1 EA TRANSDERMAL TD SCH (09:00)
[2021-07-27] MEDS ORDERED: FOLIC ACID 1 MG TAB PO SCH (09:00)
== END 2021-07-27 09:32 | disposition left against medical advice (07) | DRG 308 ==
LOC: M ED 14:32 → M 4MAIN 16:38 → ENRESERV 16:55 → M ED INP 17:08 → M 4MAIN 17:46
PROVIDERS: ADMIT Internal Medicine; ATTEND Internal Medicine
DX: I48.92 Unspecified atrial flutter (principal); U07.1 COVID-19; K26.4 Chronic or unspecified duodenal ulcer with hemorrhage; F10.131 Alcohol abuse with withdrawal delirium; D62 Acute posthemorrhagic anemia; E46 Unspecified protein-calorie malnutrition; Z68.1 Body mass index [BMI] 19.9 or less, adult; I48.0 Paroxysmal atrial fibrillation; J44.9 Chronic obstructive pulmonary disease, unspecified; I10 Essential (primary) hypertension; F32.A Depression, unspecified; M54.2 Cervicalgia; Z85.828 Personal history of other malignant neoplasm of skin; C32.1 Malignant neoplasm of supraglottis; I25.10 Atherosclerotic heart disease of native coronary artery without angina pectoris; Z98.61 Coronary angioplasty status; F17.200 Nicotine dependence, unspecified, uncomplicated; Z79.899 Other long term (current) drug therapy; Z53.20 Procedure and treatment not carried out because of patient's decision for unspecified reasons

== ENCOUNTER 2021-07-28 11:10 | Inpatient (IN) | payer MEDICARE, MEDICAID ==
[~2021-07-28] VITALS: Ht 185.4 cm; Wt 63.4 kg
[2021-07-28 11:18] VITALS: BP 108/71
[2021-07-28] MEDS ORDERED: D5W/0.45% SODIUM CHLORIDE 1,000 ML IV SCH (13:05)
[2021-07-28 13:38] LABS: BASO % 0.2 % (0.0-1.0); EOS # 0.1 10^3/uL (0.0-0.5); EOS % 0.6 % (0.0-3.0); HEMATOCRIT 43.3 % (42.0-52.0); LYMPH # 1.5 10^3/uL (1.5-5.0); MEAN CORPUSCULAR HEMOGLOBIN 29.5 pg (27.0-33.0); MEAN CORPUSCULAR VOLUME 98.2 fl (80.0-96.0); MONO % 8.4 % (2.0-8.0); NEUTROPHILS # 8.9 10^3/uL (1.5-8.5); PLATELET COUNT, AUTOMATED 301 10^3/uL (150-450); RED BLOOD COUNT 4.41 10^6/uL (4.30-6.10); WHITE BLOOD COUNT 11.5 10^3/uL (4.0-10.0)
[2021-07-28] MEDS ORDERED: HOME MED LIST COMPLETE! XX SCH (13:40)
[2021-07-28] MEDS ORDERED: ALBUTEROL 90 MCG/ACT 8GM HFA INHALER INH PRN (13:50)
[2021-07-28 13:52] LABS: INR 0.97; PROTHROMBIN TIME 13.3 SECONDS (12.7-14.5)
[2021-07-28 13:53] LABS: PARTIAL THROMBOPLASTIN TIME 31.2 SECONDS (25.9-37.0)
[2021-07-28 13:55] LABS: D-DIMER QUANT 734.96 ng/ml (<500)
[2021-07-28 14:00] VITALS: BP 103/63
[2021-07-28 14:13] LABS: ALBUMIN 2.8 GM/DL (3.2-5.2); ALT/SGPT 55 U/L (12-78); BILIRUBIN,DIRECT 0.1 MG/DL (0.0-0.2); BILIRUBIN,TOTAL 0.2 MG/DL (0.2-1.0); BLOOD UREA NITROGEN 27 MG/DL (7-18); C REACTIVE PROTEIN QUANTITATIV 1.46 MG/DL (0.00-0.30); CALCIUM LEVEL 9.3 MG/DL (8.8-10.2); CARBON DIOXIDE LEVEL 34 MEQ/L (21-32); CHLORIDE LEVEL 103 MEQ/L (98-107); CREATININE FOR GFR 0.66 MG/DL (0.70-1.30); FERRITIN 197 NG/ML (26-388); GLOMERULAR FILTRATION RATE > 60.0 (>49); GLUCOSE, FASTING 90 MG/DL (70-100); LDH LACTATE DEHYDROGENASE 205 U/L (87-241); MAGNESIUM LEVEL 2.3 MG/DL (1.8-2.4); NT-PRO BNP 1705 PG/ML (<125); POTASSIUM SERUM 4.3 MEQ/L (3.5-5.1); SODIUM LEVEL 142 MEQ/L (136-145); TOTAL PROTEIN 6.2 GM/DL (6.4-8.2)
[2021-07-28] MEDS: KETOROLAC 30 MG/ML 1ML VIAL IV PRN ×2 (14:34→20:49)
[2021-07-28] MEDS: NICOTINE 21MG/24HR 1 EA TRANSDERMAL TD SCH ×2 (14:35→19:59)
[2021-07-28] MEDS: dexameTHASONE 4 MG/ML 1ML VIAL (J1100 PER 1MG) IV SCH (14:35)
[2021-07-28] MEDS ORDERED: REMDESIVIR 200 MG in NS 250 ML IV ONE (15:00)
[2021-07-28] MEDS: GABAPENTIN 300 MG CAP PO SCH ×2 (16:13→19:58)
[2021-07-28] MEDS: BARICITINIB 2MG TABLET (OLUMIANT) FOR EUA PO SCH (16:14)
[2021-07-28] MEDS ORDERED: SODIUM CHLORIDE 0.9% INJ 10 ML SYR IV ONE (17:00)
[2021-07-28 20:00] VITALS: BP 131/81; O2SAT 98
[2021-07-29] VITALS (9 sets, daily range): BP systolic 89–122; BP diastolic 62–88; O2SAT 94–96
[2021-07-29] MEDS: KETOROLAC 30 MG/ML 1ML VIAL IV PRN (04:19)
[2021-07-29] MEDS ORDERED: D5W/0.45% SODIUM CHLORIDE 1,000 ML IV SCH (05:00)
[2021-07-29 07:26] LABS: BASO % 0.1 % (0.0-1.0); HEMATOCRIT 42.4 % (42.0-52.0); HEMOGLOBIN 13.1 g/dl (13.5-17.5); LYMPH # 0.9 10^3/uL (1.5-5.0); LYMPH % 13.3 % (24.0-44.0); MEAN CORPUSCULAR HEMOGLOBIN 29.4 pg (27.0-33.0); MEAN CORPUSCULAR HGB CONC 30.9 g/dl (32.0-36.5); MEAN CORPUSCULAR VOLUME 95.3 fl (80.0-96.0); MONO # 0.5 10^3/uL (0.0-0.8); MONO % 7.4 % (2.0-8.0); NEUTROPHILS # 5.4 10^3/uL (1.5-8.5); NEUTROPHILS % 78.6 % (36.0-66.0); PLATELET COUNT, AUTOMATED 294 10^3/uL (150-450); RED BLOOD COUNT 4.45 10^6/uL (4.30-6.10); WHITE BLOOD COUNT 6.9 10^3/uL (4.0-10.0)
[2021-07-29 07:40] LABS: ALBUMIN 2.7 GM/DL (3.2-5.2); ALT/SGPT 47 U/L (12-78); BILIRUBIN,DIRECT 0.1 MG/DL (0.0-0.2); BILIRUBIN,TOTAL 0.3 MG/DL (0.2-1.0); BLOOD UREA NITROGEN 17 MG/DL (7-18); CALCIUM LEVEL 9.4 MG/DL (8.8-10.2); CARBON DIOXIDE LEVEL 36 MEQ/L (21-32); CHLORIDE LEVEL 102 MEQ/L (98-107); CREATININE FOR GFR 0.62 MG/DL (0.70-1.30); GLOMERULAR FILTRATION RATE > 60.0 (>49); GLUCOSE, FASTING 124 MG/DL (70-100); MAGNESIUM LEVEL 2.6 MG/DL (1.8-2.4); SODIUM LEVEL 139 MEQ/L (136-145); TOTAL PROTEIN 6.7 GM/DL (6.4-8.2)
[2021-07-29] MEDS: ADVAIR HFA 115/21MCG INHALER INH SCH ×2 (07:41→19:51)
[2021-07-29] MEDS: TIOTROPIUM INHALER/CAPSULE (SPIRIVA) INH SCH (07:42)
[2021-07-29] MEDS ORDERED: BARICITINIB 2MG TABLET (OLUMIANT) FOR EUA PO SCH (09:00)
[2021-07-29] MEDS ORDERED: NON-FORMULARY 1 EA EA INH SCH (09:00)
[2021-07-29] MEDS: dexameTHASONE 4 MG/ML 1ML VIAL (J1100 PER 1MG) IV SCH (09:54)
[2021-07-29] MEDS: GABAPENTIN 300 MG CAP PO SCH ×4 (09:54→17:00)
[2021-07-29] MEDS: BARICITINIB 2MG TABLET (OLUMIANT) FOR EUA PO SCH (09:55)
[2021-07-29] MEDS ORDERED: LORazepam 2 MG TAB PO PRN (13:05)
[2021-07-29] MEDS: MULTIVITAMINS/MINERALS THERAP 1 TAB PO SCH (14:14)
[2021-07-29] MEDS: FOLIC ACID 1 MG TAB PO SCH (14:14)
[2021-07-29] MEDS: THIAMINE 100 MG TAB PO SCH ×2 (14:14→20:17)
[2021-07-29] MEDS: REMDESIVIR 100 MG in NS 250 ML IV SCH (15:06)
[2021-07-29] MEDS ORDERED: NS 1,000 ML IV ONE (16:50)
[2021-07-29] MEDS: SODIUM CHLORIDE 0.9% INJ 10 ML SYR IV SCH (16:55)
[2021-07-29 17:29] LABS: ABG BASE EXCESS 6.1 (-2.0-2.0); ABG HCO3 31.8 MEQ/L (22.0-26.0); ABG O2 SATURATION 95.1 % (95.0-99.0); ABG PARTIAL PRESSURE CO2 50.2 mmHg (35.0-45.0); ABG PARTIAL PRESSURE O2 75.4 mmHg (75.0-100.0); ABG STANDARD HCO3 29.9 MEQ/L (22.0-26.0); ABG TOTAL CO2 33.4 MEQ/L (23.0-31.0)
[2021-07-29] MEDS ORDERED: flumazeniL 0.5 MG/5 ML VIAL IV STA ×3 (17:38→17:40)
[2021-07-29] MEDS: MIDODRINE 5 MG TAB PO SCH (18:43)
[2021-07-29] MEDS ORDERED: NS 1,000 ML IV SCH (19:00)
[2021-07-29] MEDS: NICOTINE 21MG/24HR 1 EA TRANSDERMAL TD SCH (20:16)
[2021-07-29] MEDS ORDERED: LORazepam 0.5 MG TAB PO ONE (21:15)
[2021-07-29] MEDS ORDERED: OLANZapine INTRAMUSCULAR 10MG VIAL IM ONE (23:35)
[2021-07-29] MEDS ORDERED: LORazepam 2 MG/ML VIAL IV STA (23:54)
[2021-07-29] MEDS ORDERED: NICOTINE 7 MG/24 HR TRANSDERMAL TD PRN (23:55)
[2021-07-30] VITALS (33 sets, daily range): BP systolic 88–151; BP diastolic 51–92; O2SAT 96–100
[2021-07-30] MEDS ORDERED: BENZONATATE 100MG CAPSULE PO PRN
[2021-07-30] MEDS ORDERED: DIGOXIN INJ 0.5 MG/2 ML AMP (J1160) IV ONE ×2 (03:10→03:55)
[2021-07-30 06:25] LABS: BASO % 0.1 % (0.0-1.0); HEMATOCRIT 42.9 % (42.0-52.0); HEMOGLOBIN 13.1 g/dl (13.5-17.5); MEAN CORPUSCULAR HEMOGLOBIN 28.9 pg (27.0-33.0); MEAN CORPUSCULAR HGB CONC 30.5 g/dl (32.0-36.5); MEAN CORPUSCULAR VOLUME 94.5 fl (80.0-96.0); MONO # 0.9 10^3/uL (0.0-0.8); MONO % 7.3 % (2.0-8.0); NEUTROPHILS # 10.6 10^3/uL (1.5-8.5); PLATELET COUNT, AUTOMATED 319 10^3/uL (150-450); RED BLOOD COUNT 4.54 10^6/uL (4.30-6.10); WHITE BLOOD COUNT 12.6 10^3/uL (4.0-10.0)
[2021-07-30 06:31] LABS: PROTHROMBIN TIME 13.6 SECONDS (12.7-14.5)
[2021-07-30 06:32] LABS: PARTIAL THROMBOPLASTIN TIME 30.6 SECONDS (25.9-37.0)
[2021-07-30 06:58] LABS: ALBUMIN 2.7 GM/DL (3.2-5.2); ALT/SGPT 43 U/L (12-78); BILIRUBIN,DIRECT 0.1 MG/DL (0.0-0.2); BILIRUBIN,TOTAL 0.3 MG/DL (0.2-1.0); BLOOD UREA NITROGEN 19 MG/DL (7-18); CALCIUM LEVEL 8.3 MG/DL (8.8-10.2); CARBON DIOXIDE LEVEL 33 MEQ/L (21-32); CHLORIDE LEVEL 105 MEQ/L (98-107); FERRITIN 170 NG/ML (26-388); GLOMERULAR FILTRATION RATE > 60.0 (>49); GLUCOSE, FASTING 116 MG/DL (70-100); LDH LACTATE DEHYDROGENASE 181 U/L (87-241); MAGNESIUM LEVEL 2.4 MG/DL (1.8-2.4); NT-PRO BNP 2188 PG/ML (<125); POTASSIUM SERUM 4.8 MEQ/L (3.5-5.1); SODIUM LEVEL 139 MEQ/L (136-145); TOTAL PROTEIN 6.4 GM/DL (6.4-8.2)
[2021-07-30] MEDS ORDERED: ROCURONIUM BROMIDE 50 MG/5 ML VIAL As Ordered ONE (07:04)
[2021-07-30] MEDS ORDERED: ONDANSETRON 4MG/2ML VIAL As Ordered ONE (07:04)
[2021-07-30] MEDS ORDERED: propofoL 200 MG/20 ML VIAL As Ordered ONE (07:04)
[2021-07-30] MEDS ORDERED: MIDAZOLAM INJ 2MG/2ML VIAL (J2250 PER 1MG) As Ordered ONE (07:04)
[2021-07-30] MEDS ORDERED: dexameTHASONE 4 MG/ML 1ML VIAL (J1100 PER 1MG) As Ordered ONE (07:04)
[2021-07-30] MEDS ORDERED: LIDOCAINE 2% 100MG/5ML SDV (FOR ANES.) As Ordered ONE (07:04)
[2021-07-30] MEDS ORDERED: fentaNYL 100 MCG/2 ML INJECTION As Ordered ONE (07:04)
[2021-07-30] MEDS ORDERED: KETAMINE HCL 200 MG/20 ML VIAL As Ordered ONE (07:35)
[2021-07-30] MEDS ORDERED: SUCCINYLCHOLINE 100 MG/5 ML SYRINGE (J0330) As Ordered ONE (07:35)
[2021-07-30] MEDS ORDERED: GLYCOPYRROLATE INJ 0.2 MG/ML 2 ML VIAL As Ordered ONE (07:40)
[2021-07-30] MEDS: TIOTROPIUM INHALER/CAPSULE (SPIRIVA) INH SCH ×2 (08:00→08:03)
[2021-07-30] MEDS: ADVAIR HFA 115/21MCG INHALER INH SCH ×3 (08:00→19:00)
[2021-07-30] MEDS: MIDODRINE 5 MG TAB PO SCH ×3 (08:00→16:00)
[2021-07-30] MEDS ORDERED: ACETAMINOPHEN 1000MG 100ML IV BTL (OFIRMEV) (J0131 PER 10MG) As Ordered ONE (10:25)
[2021-07-30] MEDS ORDERED: PHENYLephrine 500MCG 5ML (100MCG/ML) SYRINGE As Ordered ONE ×2 (11:17→11:25)
[2021-07-30] MEDS ORDERED: SUGAMMADEX SODIUM 500 MG/5 ML VIAL (BRIDION) As Ordered ONE (11:20)
[2021-07-30] MEDS ORDERED: LIDOCAINE W/EPINEPHRINE 1% 20ML VIAL As Ordered ONE (12:03)
[2021-07-30] MEDS ORDERED: METHYLENE BLUE 0.5% (5MG/ML) 10 ML AMP (PROVAYBLUE) As Ordered ONE (12:04)
[2021-07-30] MEDS ORDERED: OXYMETAZOLINE 0.05% NASAL SPRAY (AFRIN) As Ordered ONE (12:04)
[2021-07-30] MEDS ORDERED: CEFUROXIME INJ 1.5 GM VIAL (J0697 PER 750MG) As Ordered ONE (12:05)
[2021-07-30] MEDS ORDERED: PHENYLEPHRINE 0.5% NASAL SPRAY 15 ML As Ordered ONE (12:05)
[2021-07-30] MEDS ORDERED: flumazeniL 0.5 MG/5 ML VIAL As Ordered ONE (12:32)
[2021-07-30] MEDS ORDERED: AMIODARONE HCL 150 MG in IV 1 EA IV STA (13:45)
[2021-07-30] MEDS ORDERED: NS 1,000 ML IV ONE ×2 (13:45→15:25)
[2021-07-30 14:33] LABS: DIGOXIN LEVEL 3.3 NG/ML (0.5-2.0)
[2021-07-30] MEDS: FOLIC ACID 1 MG TAB PO SCH (14:47)
[2021-07-30] MEDS: MULTIVITAMINS/MINERALS THERAP 1 TAB PO SCH (14:48)
[2021-07-30] MEDS: THIAMINE 100 MG TAB PO SCH ×3 (14:48→21:00)
[2021-07-30] MEDS: BARICITINIB 2MG TABLET (OLUMIANT) FOR EUA PO SCH (14:48)
[2021-07-30] MEDS ORDERED: NS 1,000 ML IV SCH (14:50)
[2021-07-30] MEDS ORDERED: diltiaZEM 125 MG in NS 100 ML IV SCH (15:00)
[2021-07-30] MEDS: dexameTHASONE 4 MG/ML 1ML VIAL (J1100 PER 1MG) IV SCH (15:14)
[2021-07-30 15:24] LABS: THYROID PEROXIDASE ANTIBODY < 28.0 U/ML (<60.0)
[2021-07-30] MEDS: REMDESIVIR 100 MG in NS 250 ML IV SCH (15:39)
[2021-07-30] MEDS: SODIUM CHLORIDE 0.9% INJ 10 ML SYR IV SCH (17:14)
[2021-07-30] MEDS: NICOTINE 21MG/24HR 1 EA TRANSDERMAL TD SCH (22:09)
[2021-07-31] VITALS (47 sets, daily range): BP systolic 80–121; BP diastolic 50–87; O2SAT 97–100
[2021-07-31 05:18] LABS: BASO % 0.1 % (0.0-1.0); HEMATOCRIT 41.5 % (42.0-52.0); HEMOGLOBIN 12.9 g/dl (13.5-17.5); LYMPH # 0.9 10^3/uL (1.5-5.0); LYMPH % 3.1 % (24.0-44.0); MEAN CORPUSCULAR HEMOGLOBIN 29.1 pg (27.0-33.0); MEAN CORPUSCULAR HGB CONC 31.1 g/dl (32.0-36.5); MEAN CORPUSCULAR VOLUME 93.7 fl (80.0-96.0); MONO # 1.5 10^3/uL (0.0-0.8); MONO % 5.2 % (2.0-8.0); NEUTROPHILS # 25.1 10^3/uL (1.5-8.5); NEUTROPHILS % 90.7 % (36.0-66.0); PLATELET COUNT, AUTOMATED 275 10^3/uL (150-450); RED BLOOD COUNT 4.43 10^6/uL (4.30-6.10); WHITE BLOOD COUNT 27.7 10^3/uL (4.0-10.0)
[2021-07-31 05:51] LABS: BLOOD UREA NITROGEN 16 MG/DL (7-18); CALCIUM LEVEL 8.3 MG/DL (8.8-10.2); CARBON DIOXIDE LEVEL 33 MEQ/L (21-32); CHLORIDE LEVEL 102 MEQ/L (98-107); CREATININE FOR GFR 0.56 MG/DL (0.70-1.30); DIGOXIN LEVEL 1.2 NG/ML (0.5-2.0); GLOMERULAR FILTRATION RATE > 60.0 (>49); GLUCOSE, FASTING 118 MG/DL (70-100); POTASSIUM SERUM 4.9 MEQ/L (3.5-5.1); SODIUM LEVEL 138 MEQ/L (136-145)
[2021-07-31] MEDS: ADVAIR HFA 115/21MCG INHALER INH SCH ×2 (08:00→19:14)
[2021-07-31] MEDS: TIOTROPIUM INHALER/CAPSULE (SPIRIVA) INH SCH (08:00)
[2021-07-31] MEDS: dexameTHASONE 4 MG/ML 1ML VIAL (J1100 PER 1MG) IV SCH (08:25)
[2021-07-31] MEDS ORDERED: diltiaZEM 125 MG in NS 100 ML IV SCH (12:00)
[2021-07-31] MEDS ORDERED: NS 1,000 ML IV ONE ×2 (12:30→15:25)
[2021-07-31] MEDS ORDERED: AMIODARONE HCL 150 MG in IV 1 EA IV STA (12:32)
[2021-07-31] MEDS ORDERED: GLUCAGON INJ 1MG VIAL SC PRN (12:45)
[2021-07-31] MEDS: D5W/0.45% SODIUM CHLORIDE 1,000 ML IV SCH (12:45)
[2021-07-31] MEDS ORDERED: GLUCOSE 4GM CHEW TABLET PO PRN (12:45)
[2021-07-31] MEDS ORDERED: DEXTROSE 50% 50 ML SYRINGE IV PRN (12:45)
[2021-07-31] MEDS: DIGOXIN INJ 0.5 MG/2 ML AMP (J1160) IV SCH ×2 (13:34→18:14)
[2021-07-31] MEDS ORDERED: AMIODARONE HCL 150 MG in IV 1 EA IV PRN ×2 (14:30→18:00)
[2021-07-31] MEDS: REMDESIVIR 100 MG in NS 250 ML IV SCH (16:22)
[2021-07-31] MEDS: KETOROLAC 30 MG/ML 1ML VIAL IV PRN (16:29)
[2021-07-31] MEDS: SODIUM CHLORIDE 0.9% INJ 10 ML SYR IV SCH (18:15)
[2021-07-31] MEDS: NICOTINE 21MG/24HR 1 EA TRANSDERMAL TD SCH (21:02)
[2021-08-01] VITALS (39 sets, daily range): BP systolic 97–139; BP diastolic 56–94; O2SAT 95–99
[2021-08-01] MEDS: DIGOXIN INJ 0.5 MG/2 ML AMP (J1160) IV SCH ×2 (00:28→06:14)
[2021-08-01] MEDS: D5W/0.45% SODIUM CHLORIDE 1,000 ML IV SCH ×2 (05:16→21:40)
[2021-08-01 06:46] LABS: BASO % 0.1 % (0.0-1.0); HEMATOCRIT 35.8 % (42.0-52.0); HEMOGLOBIN 11.5 g/dl (13.5-17.5); LYMPH # 1.1 10^3/uL (1.5-5.0); MEAN CORPUSCULAR HEMOGLOBIN 28.8 pg (27.0-33.0); MEAN CORPUSCULAR HGB CONC 32.1 g/dl (32.0-36.5); MEAN CORPUSCULAR VOLUME 89.5 fl (80.0-96.0); MONO # 1.4 10^3/uL (0.0-0.8); MONO % 10.6 % (2.0-8.0); NEUTROPHILS # 10.9 10^3/uL (1.5-8.5); NEUTROPHILS % 80.9 % (36.0-66.0); PLATELET COUNT, AUTOMATED 217 10^3/uL (150-450); WHITE BLOOD COUNT 13.5 10^3/uL (4.0-10.0)
[2021-08-01 07:08] LABS: INR 1.09; PARTIAL THROMBOPLASTIN TIME 31.7 SECONDS (25.9-37.0); PROTHROMBIN TIME 14.5 SECONDS (12.7-14.5)
[2021-08-01] MEDS: TIOTROPIUM INHALER/CAPSULE (SPIRIVA) INH SCH (08:00)
[2021-08-01] MEDS: ADVAIR HFA 115/21MCG INHALER INH SCH ×2 (08:00→19:28)
[2021-08-01] MEDS: dexameTHASONE 4 MG/ML 1ML VIAL (J1100 PER 1MG) IV SCH (08:09)
[2021-08-01 08:58] LABS: ALT/SGPT 25 U/L (12-78); BILIRUBIN,DIRECT 0.2 MG/DL (0.0-0.2); BILIRUBIN,TOTAL 0.5 MG/DL (0.2-1.0); BLOOD UREA NITROGEN 19 MG/DL (7-18); CARBON DIOXIDE LEVEL 31 MEQ/L (21-32); CHLORIDE LEVEL 105 MEQ/L (98-107); CREATININE FOR GFR 0.52 MG/DL (0.70-1.30); FERRITIN 330 NG/ML (26-388); GLOMERULAR FILTRATION RATE > 60.0 (>49); GLUCOSE, FASTING 107 MG/DL (70-100); LDH LACTATE DEHYDROGENASE 180 U/L (87-241); MAGNESIUM LEVEL 1.9 MG/DL (1.8-2.4); NT-PRO BNP 3846 PG/ML (<125); POTASSIUM SERUM 3.9 MEQ/L (3.5-5.1); SODIUM LEVEL 140 MEQ/L (136-145); TOTAL PROTEIN 4.8 GM/DL (6.4-8.2)
[2021-08-01 09:10] LABS: DIGOXIN LEVEL > 5.0 NG/ML (0.5-2.0)
[2021-08-01] MEDS: KETOROLAC 30 MG/ML 1ML VIAL IV PRN (11:57)
[2021-08-01] MEDS ORDERED: MORPHINE 2 MG/ML 1ML VIAL IV ONE (14:45)
[2021-08-01] MEDS ORDERED: DIGOXIN INJ 0.5 MG/2 ML AMP (J1160) IV ONE (14:45)
[2021-08-01] MEDS: REMDESIVIR 100 MG in NS 250 ML IV SCH (15:05)
[2021-08-01] MEDS: SODIUM CHLORIDE 0.9% INJ 10 ML SYR IV SCH (18:12)
[2021-08-01] MEDS: NICOTINE 21MG/24HR 1 EA TRANSDERMAL TD SCH (21:40)
[2021-08-02] VITALS (13 sets, daily range): BP systolic 108–152; BP diastolic 66–90; O2SAT 96
[2021-08-02] MEDS: MORPHINE 2 MG/ML 1ML VIAL IV PRN ×4 (02:17→22:06)
[2021-08-02 06:19] LABS: EOS % 0.1 % (0.0-3.0); HEMATOCRIT 38.4 % (42.0-52.0); HEMOGLOBIN 12.4 g/dl (13.5-17.5); LYMPH # 1.5 10^3/uL (1.5-5.0); LYMPH % 14.1 % (24.0-44.0); MEAN CORPUSCULAR HGB CONC 32.3 g/dl (32.0-36.5); MEAN CORPUSCULAR VOLUME 89.7 fl (80.0-96.0); MONO # 1.3 10^3/uL (0.0-0.8); MONO % 11.5 % (2.0-8.0); NEUTROPHILS % 73.7 % (36.0-66.0); PLATELET COUNT, AUTOMATED 203 10^3/uL (150-450); RED BLOOD COUNT 4.28 10^6/uL (4.30-6.10); WHITE BLOOD COUNT 10.8 10^3/uL (4.0-10.0)
[2021-08-02 06:23] LABS: BLOOD UREA NITROGEN 17 MG/DL (7-18); CARBON DIOXIDE LEVEL 31 MEQ/L (21-32); CHLORIDE LEVEL 104 MEQ/L (98-107); CREATININE FOR GFR 0.46 MG/DL (0.70-1.30); GLOMERULAR FILTRATION RATE > 60.0 (>49); GLUCOSE, FASTING 107 MG/DL (70-100); POTASSIUM SERUM 3.6 MEQ/L (3.5-5.1); SODIUM LEVEL 139 MEQ/L (136-145)
[2021-08-02] MEDS: ADVAIR HFA 115/21MCG INHALER INH SCH ×2 (07:26→20:04)
[2021-08-02] MEDS: TIOTROPIUM INHALER/CAPSULE (SPIRIVA) INH SCH (07:26)
[2021-08-02] MEDS: KETOROLAC 30 MG/ML 1ML VIAL IV PRN ×4 (08:40→22:06)
[2021-08-02] MEDS: dexameTHASONE 4 MG/ML 1ML VIAL (J1100 PER 1MG) IV SCH (08:41)
[2021-08-02] MEDS: D5W/0.45% SODIUM CHLORIDE 1,000 ML IV SCH (13:35)
[2021-08-02] MEDS ORDERED: ACETAMINOPHEN *IV* 1,000 MG in IV 1 EA IV ONE (15:30)
[2021-08-02] MEDS: NICOTINE 21MG/24HR 1 EA TRANSDERMAL TD SCH (22:05)
[2021-08-03] VITALS (8 sets, daily range): BP systolic 101–146; BP diastolic 60–92
[2021-08-03] MEDS: KETOROLAC 30 MG/ML 1ML VIAL IV PRN ×3 (04:35→20:06)
[2021-08-03] MEDS: MORPHINE 2 MG/ML 1ML VIAL IV PRN ×4 (04:36→20:06)
[2021-08-03 05:02] LABS: INR 1.01; PROTHROMBIN TIME 13.7 SECONDS (12.7-14.5)
[2021-08-03 05:03] LABS: PARTIAL THROMBOPLASTIN TIME 29.7 SECONDS (25.9-37.0)
[2021-08-03 05:22] LABS: BILIRUBIN,DIRECT 0.3 MG/DL (0.0-0.2); BILIRUBIN,TOTAL 0.7 MG/DL (0.2-1.0); TOTAL PROTEIN 4.9 GM/DL (6.4-8.2)
[2021-08-03] MEDS: D5W/0.45% SODIUM CHLORIDE 1,000 ML IV SCH ×2 (06:23→23:56)
[2021-08-03] MEDS: TIOTROPIUM INHALER/CAPSULE (SPIRIVA) INH SCH (08:04)
[2021-08-03] MEDS: ADVAIR HFA 115/21MCG INHALER INH SCH ×2 (08:05→19:58)
[2021-08-03] MEDS: dexameTHASONE 4 MG/ML 1ML VIAL (J1100 PER 1MG) IV SCH (08:17)
[2021-08-03] MEDS ORDERED: FLEET ENEMA PR PRN (09:40)
[2021-08-03] MEDS ORDERED: FLEET OIL RETENTION ENEMA PR PRN (09:40)
[2021-08-03] MEDS: DIGOXIN INJ 0.5 MG/2 ML AMP (J1160) IV SCH (10:34)
[2021-08-03] MEDS ORDERED: HYDROMORPHONE HCL 0.5 MG/ 0.5 ML SYRINGE (J1170 PER 1) IV ONE (12:35)
[2021-08-03] MEDS: BISACODYL 10 MG SUPP PR PRN (14:18)
[2021-08-03] MEDS: NICOTINE 21MG/24HR 1 EA TRANSDERMAL TD SCH (20:05)
[2021-08-04] VITALS (8 sets, daily range): BP systolic 102–146; BP diastolic 58–87
[2021-08-04 05:19] LABS: BASO % 0.1 % (0.0-1.0); EOS % 0.2 % (0.0-3.0); HEMATOCRIT 41.4 % (42.0-52.0); HEMOGLOBIN 13.3 g/dl (13.5-17.5); LYMPH # 1.8 10^3/uL (1.5-5.0); LYMPH % 12.7 % (24.0-44.0); MEAN CORPUSCULAR HEMOGLOBIN 28.7 pg (27.0-33.0); MEAN CORPUSCULAR HGB CONC 32.1 g/dl (32.0-36.5); MEAN CORPUSCULAR VOLUME 89.4 fl (80.0-96.0); MONO # 1.1 10^3/uL (0.0-0.8); MONO % 7.3 % (2.0-8.0); NEUTROPHILS # 11.5 10^3/uL (1.5-8.5); NEUTROPHILS % 79.4 % (36.0-66.0); PLATELET COUNT, AUTOMATED 199 10^3/uL (150-450); RED BLOOD COUNT 4.63 10^6/uL (4.30-6.10); WHITE BLOOD COUNT 14.5 10^3/uL (4.0-10.0)
[2021-08-04 05:30] LABS: INR 0.93; PROTHROMBIN TIME 12.9 SECONDS (12.7-14.5)
[2021-08-04 05:37] LABS: BLOOD UREA NITROGEN 17 MG/DL (7-18); CALCIUM LEVEL 8.1 MG/DL (8.8-10.2); CARBON DIOXIDE LEVEL 30 MEQ/L (21-32); CHLORIDE LEVEL 105 MEQ/L (98-107); CREATININE FOR GFR 0.69 MG/DL (0.70-1.30); GLOMERULAR FILTRATION RATE > 60.0 (>49); GLUCOSE, FASTING 93 MG/DL (70-100); POTASSIUM SERUM 3.5 MEQ/L (3.5-5.1); SODIUM LEVEL 138 MEQ/L (136-145)
[2021-08-04] MEDS: TIOTROPIUM INHALER/CAPSULE (SPIRIVA) INH SCH (07:50)
[2021-08-04] MEDS: ADVAIR HFA 115/21MCG INHALER INH SCH ×2 (07:51→20:18)
[2021-08-04] MEDS: dexameTHASONE 4 MG/ML 1ML VIAL (J1100 PER 1MG) IV SCH (08:39)
[2021-08-04] MEDS: MORPHINE 2 MG/ML 1ML VIAL IV PRN ×4 (08:39→22:36)
[2021-08-04] MEDS: DIGOXIN INJ 0.5 MG/2 ML AMP (J1160) IV SCH (08:40)
[2021-08-04] MEDS ORDERED: LIDOCAINE 1% MDV 20ML VIAL As Ordered ONE (14:34)
[2021-08-04] MEDS: D5W/0.45% SODIUM CHLORIDE 1,000 ML IV SCH (16:00)
[2021-08-04] MEDS ORDERED: SODIUM CHLORIDE 0.9% INJ 10 ML SYR IV PRN (18:20)
[2021-08-04] MEDS: NICOTINE 21MG/24HR 1 EA TRANSDERMAL TD SCH (20:08)
[2021-08-05] VITALS (7 sets, daily range): BP systolic 90–138; BP diastolic 61–80
[2021-08-05] MEDS: MORPHINE 2 MG/ML 1ML VIAL IV PRN ×6 (02:33→20:37)
[2021-08-05 04:26] LABS: BASO % 0.1 % (0.0-1.0); EOS % 0.2 % (0.0-3.0); HEMATOCRIT 38.2 % (42.0-52.0); HEMOGLOBIN 12.6 g/dl (13.5-17.5); LYMPH # 1.8 10^3/uL (1.5-5.0); LYMPH % 13.4 % (24.0-44.0); MEAN CORPUSCULAR HEMOGLOBIN 29.4 pg (27.0-33.0); MONO % 7.9 % (2.0-8.0); NEUTROPHILS # 10.3 10^3/uL (1.5-8.5); NEUTROPHILS % 77.9 % (36.0-66.0); PLATELET COUNT, AUTOMATED 209 10^3/uL (150-450); RED BLOOD COUNT 4.29 10^6/uL (4.30-6.10); WHITE BLOOD COUNT 13.2 10^3/uL (4.0-10.0)
[2021-08-05 04:47] LABS: BLOOD UREA NITROGEN 13 MG/DL (7-18); CALCIUM LEVEL 8.9 MG/DL (8.8-10.2); CARBON DIOXIDE LEVEL 32 MEQ/L (21-32); CHLORIDE LEVEL 105 MEQ/L (98-107); CREATININE FOR GFR 0.47 MG/DL (0.70-1.30); GLOMERULAR FILTRATION RATE > 60.0 (>49); GLUCOSE, FASTING 97 MG/DL (70-100); POTASSIUM SERUM 3.5 MEQ/L (3.5-5.1); SODIUM LEVEL 140 MEQ/L (136-145)
[2021-08-05] MEDS: SODIUM CHLORIDE 0.9% INJ 10 ML SYR IV SCH ×2 (05:02→18:09)
[2021-08-05] MEDS: TIOTROPIUM INHALER/CAPSULE (SPIRIVA) INH SCH (08:00)
[2021-08-05] MEDS: ADVAIR HFA 115/21MCG INHALER INH SCH ×2 (08:06→19:55)
[2021-08-05] MEDS: dexameTHASONE 4 MG/ML 1ML VIAL (J1100 PER 1MG) IV SCH (08:40)
[2021-08-05] MEDS: DIGOXIN INJ 0.5 MG/2 ML AMP (J1160) IV SCH (08:41)
[2021-08-05] MEDS: D5W/0.45% SODIUM CHLORIDE 1,000 ML IV SCH (08:44)
[2021-08-05] MEDS ORDERED: MULTIVITAMIN -ADULT INJECTION 10 ML, ZINC/COPPER/MANGANESE/SELENIUM 1 ML in AMINO AC/EL... IV SCH (18:00)
[2021-08-05] MEDS: NICOTINE 21MG/24HR 1 EA TRANSDERMAL TD SCH (20:37)
[2021-08-05] MEDS: KETOROLAC 30 MG/ML 1ML VIAL IV PRN (22:03)
[2021-08-06] VITALS (8 sets, daily range): BP systolic 96–128; BP diastolic 58–80
[2021-08-06] MEDS: KETOROLAC 30 MG/ML 1ML VIAL IV PRN (04:48)
[2021-08-06 04:56] LABS: BASO % 0.1 % (0.0-1.0); EOS % 0.2 % (0.0-3.0); HEMATOCRIT 37.9 % (42.0-52.0); HEMOGLOBIN 12.5 g/dl (13.5-17.5); LYMPH # 1.7 10^3/uL (1.5-5.0); LYMPH % 11.6 % (24.0-44.0); MEAN CORPUSCULAR HEMOGLOBIN 29.4 pg (27.0-33.0); MEAN CORPUSCULAR VOLUME 89.2 fl (80.0-96.0); MONO # 1.1 10^3/uL (0.0-0.8); MONO % 7.5 % (2.0-8.0); NEUTROPHILS # 11.9 10^3/uL (1.5-8.5); NEUTROPHILS % 80.1 % (36.0-66.0); PLATELET COUNT, AUTOMATED 184 10^3/uL (150-450); RED BLOOD COUNT 4.25 10^6/uL (4.30-6.10); WHITE BLOOD COUNT 14.9 10^3/uL (4.0-10.0)
[2021-08-06 05:21] LABS: BLOOD UREA NITROGEN 13 MG/DL (7-18); CALCIUM LEVEL 8.5 MG/DL (8.8-10.2); CARBON DIOXIDE LEVEL 33 MEQ/L (21-32); CHLORIDE LEVEL 104 MEQ/L (98-107); CREATININE FOR GFR 0.46 MG/DL (0.70-1.30); GLOMERULAR FILTRATION RATE > 60.0 (>49); GLUCOSE, FASTING 113 MG/DL (70-100); POTASSIUM SERUM 3.6 MEQ/L (3.5-5.1); SODIUM LEVEL 140 MEQ/L (136-145)
[2021-08-06] MEDS: SODIUM CHLORIDE 0.9% INJ 10 ML SYR IV SCH ×2 (05:35→18:11)
[2021-08-06] MEDS: MORPHINE 2 MG/ML 1ML VIAL IV PRN ×5 (06:58→18:10)
[2021-08-06] MEDS: TIOTROPIUM INHALER/CAPSULE (SPIRIVA) INH SCH (07:25)
[2021-08-06] MEDS: ADVAIR HFA 115/21MCG INHALER INH SCH ×2 (07:27→20:58)
[2021-08-06] MEDS: dexameTHASONE 4 MG/ML 1ML VIAL (J1100 PER 1MG) IV SCH (08:43)
[2021-08-06] MEDS: DIGOXIN INJ 0.5 MG/2 ML AMP (J1160) IV SCH (08:43)
[2021-08-06] MEDS: BISACODYL 10 MG SUPP PR PRN (08:49)
[2021-08-06] MEDS ORDERED: AMINO AC/ELECTROLYTE/DEX/CALC 2,566 ML IV SCH (18:00)
[2021-08-06] MEDS: NICOTINE 21MG/24HR 1 EA TRANSDERMAL TD SCH (21:17)
[2021-08-07] VITALS (60 sets, daily range): BP systolic 74–156; BP diastolic 50–78
[2021-08-07] MEDS ORDERED: NS 1,000 ML IV ONE ×2 (00:10→00:35)
[2021-08-07] MEDS ORDERED: PANTOPRAZOLE 40MG VIAL IV ONE (01:00)
[2021-08-07 02:49] LABS: VENOUS BASE EXCESS 0.7 (-2.0-2.0); VENOUS HCO3 26.9 MEQ/L (23.0-27.0); VENOUS O2 SATURATION 80.9 % (60.0-80.0); VENOUS PARTIAL PRESSURE CO2 52.2 mmHg (38.0-50.0); VENOUS PARTIAL PRESSURE O2 50.6 mmHg (30.0-50.0); VENOUS STANDARD HCO3 24.9 MEQ/L; VENOUS TOTAL CO2 28.5 MEQ/L (24.0-28.0)
[2021-08-07 02:59] LABS: BASO % 0.1 % (0.0-1.0); EOS % 0.1 % (0.0-3.0); LYMPH # 1.1 10^3/uL (1.5-5.0); LYMPH % 6.3 % (24.0-44.0); MEAN CORPUSCULAR HEMOGLOBIN 29.8 pg (27.0-33.0); MEAN CORPUSCULAR HGB CONC 32.7 g/dl (32.0-36.5); MEAN CORPUSCULAR VOLUME 91.1 fl (80.0-96.0); MONO # 1.2 10^3/uL (0.0-0.8); MONO % 6.8 % (2.0-8.0); NEUTROPHILS # 15.3 10^3/uL (1.5-8.5); PLATELET COUNT, AUTOMATED 130 10^3/uL (150-450); RED BLOOD COUNT 2.25 10^6/uL (4.30-6.10); WHITE BLOOD COUNT 17.8 10^3/uL (4.0-10.0)
[2021-08-07 03:05] LABS: HEMATOCRIT 20.5 % (42.0-52.0); HEMOGLOBIN 6.7 g/dl (13.5-17.5)
[2021-08-07 03:16] LABS: BLOOD UREA NITROGEN 39 MG/DL (7-18); CALCIUM LEVEL 7.1 MG/DL (8.8-10.2); CARBON DIOXIDE LEVEL 29 MEQ/L (21-32); CHLORIDE LEVEL 110 MEQ/L (98-107); CREATININE FOR GFR 0.43 MG/DL (0.70-1.30); GLOMERULAR FILTRATION RATE > 60.0 (>49); GLUCOSE, FASTING 111 MG/DL (70-100); MAGNESIUM LEVEL 1.8 MG/DL (1.8-2.4); POTASSIUM SERUM 4.3 MEQ/L (3.5-5.1); SODIUM LEVEL 140 MEQ/L (136-145)
[2021-08-07 03:25] LABS: INR 1.09; PARTIAL THROMBOPLASTIN TIME 28.8 SECONDS (25.9-37.0); PROTHROMBIN TIME 14.5 SECONDS (12.7-14.5)
[2021-08-07] MEDS ORDERED: LR 1,000 ML IV ONE (03:25)
[2021-08-07] MEDS: MORPHINE 2 MG/ML 1ML VIAL IV PRN ×3 (03:43→21:09)
[2021-08-07] MEDS ORDERED: MIDAZOLAM INJ 2MG/2ML VIAL (J2250 PER 1MG) As Ordered ONE (05:58)
[2021-08-07] MEDS: SODIUM CHLORIDE 0.9% INJ 10 ML SYR IV SCH ×2 (06:00→17:51)
[2021-08-07] MEDS ORDERED: EPINEPHrine 1MG/10ML SYRINGE 1.5IN As Ordered ONE (06:05)
[2021-08-07] MEDS ORDERED: EPINEPHrine INJ 1 MG/ML 1ML AMP As Ordered ONE (06:06)
[2021-08-07] MEDS ORDERED: fentaNYL 100 MCG/2 ML INJECTION As Ordered ONE (06:21)
[2021-08-07] MEDS ORDERED: PHENYLEPHRINE 10MG/ML 1ML VIAL (J2370 PER 1) As Ordered ONE (06:22)
[2021-08-07] MEDS ORDERED: GLUCAGON INJ 1MG VIAL As Ordered ONE (06:23)
[2021-08-07] MEDS ORDERED: PHENYLephrine 500MCG 5ML (100MCG/ML) SYRINGE As Ordered ONE (06:32)
[2021-08-07] MEDS ORDERED: LR 1,000 ML IV SCH (06:45)
[2021-08-07] MEDS ORDERED: fentaNYL 100 MCG/2 ML INJECTION IV PRN (06:45)
[2021-08-07] MEDS ORDERED: ONDANSETRON 4MG/2ML VIAL IV PRN (06:45)
[2021-08-07] MEDS ORDERED: INSULIN LISPRO (NovoLOG) PER UNIT SC PRN (06:45)
[2021-08-07] MEDS: TIOTROPIUM INHALER/CAPSULE (SPIRIVA) INH SCH ×2 (08:00→11:55)
[2021-08-07 08:51] LABS: HEMATOCRIT 28.9 % (42.0-52.0); MEAN CORPUSCULAR HEMOGLOBIN 28.8 pg (27.0-33.0); MEAN CORPUSCULAR HGB CONC 33.2 g/dl (32.0-36.5); MEAN CORPUSCULAR VOLUME 86.8 fl (80.0-96.0); PLATELET COUNT, AUTOMATED 111 10^3/uL (150-450); RED BLOOD COUNT 3.33 10^6/uL (4.30-6.10); WHITE BLOOD COUNT 23.2 10^3/uL (4.0-10.0)
[2021-08-07 08:52] LABS: HEMOGLOBIN 9.6 g/dl (13.5-17.5)
[2021-08-07] MEDS: PANTOPRAZOLE 40MG VIAL IV SCH ×2 (09:14→21:07)
[2021-08-07] MEDS: DIGOXIN INJ 0.5 MG/2 ML AMP (J1160) IV SCH (09:15)
[2021-08-07] MEDS: ADVAIR HFA 115/21MCG INHALER INH SCH ×2 (11:55→19:41)
[2021-08-07 16:46] LABS: HEMATOCRIT 31.1 % (42.0-52.0); HEMOGLOBIN 10.7 g/dl (13.5-17.5); MEAN CORPUSCULAR HEMOGLOBIN 29.5 pg (27.0-33.0); MEAN CORPUSCULAR HGB CONC 34.4 g/dl (32.0-36.5); MEAN CORPUSCULAR VOLUME 85.7 fl (80.0-96.0); PLATELET COUNT, AUTOMATED 124 10^3/uL (150-450); RED BLOOD COUNT 3.63 10^6/uL (4.30-6.10); WHITE BLOOD COUNT 16.9 10^3/uL (4.0-10.0)
[2021-08-07] MEDS ORDERED: MULTIVITAMIN -ADULT INJECTION 10 ML, ZINC/COPPER/MANGANESE/SELENIUM 1 ML in AMINO AC/EL... IV SCH (18:00)
[2021-08-07] MEDS: NICOTINE 21MG/24HR 1 EA TRANSDERMAL TD SCH (21:07)
[2021-08-08] VITALS (36 sets, daily range): BP systolic 76–109; BP diastolic 50–77
[2021-08-08] MEDS ORDERED: NS 1,000 ML IV ONE ×3 (00:45→17:40)
[2021-08-08] MEDS: SODIUM CHLORIDE 0.9% INJ 10 ML SYR IV SCH ×2 (05:26→17:47)
[2021-08-08] MEDS: MORPHINE 2 MG/ML 1ML VIAL IV PRN ×2 (06:02→18:27)
[2021-08-08 06:06] LABS: BASO % 0.1 % (0.0-1.0); EOS # 0.1 10^3/uL (0.0-0.5); EOS % 0.8 % (0.0-3.0); HEMOGLOBIN 10.1 g/dl (13.5-17.5); LYMPH # 1.5 10^3/uL (1.5-5.0); LYMPH % 10.2 % (24.0-44.0); MEAN CORPUSCULAR HEMOGLOBIN 28.7 pg (27.0-33.0); MEAN CORPUSCULAR HGB CONC 33.7 g/dl (32.0-36.5); MEAN CORPUSCULAR VOLUME 85.2 fl (80.0-96.0); MONO # 1.2 10^3/uL (0.0-0.8); MONO % 7.9 % (2.0-8.0); NEUTROPHILS # 12.1 10^3/uL (1.5-8.5); NEUTROPHILS % 80.3 % (36.0-66.0); PLATELET COUNT, AUTOMATED 119 10^3/uL (150-450); RED BLOOD COUNT 3.52 10^6/uL (4.30-6.10)
[2021-08-08 06:43] LABS: BLOOD UREA NITROGEN 14 MG/DL (7-18); CALCIUM LEVEL 7.3 MG/DL (8.8-10.2); CARBON DIOXIDE LEVEL 28 MEQ/L (21-32); CHLORIDE LEVEL 108 MEQ/L (98-107); CREATININE FOR GFR 0.36 MG/DL (0.70-1.30); GLOMERULAR FILTRATION RATE > 60.0 (>49); GLUCOSE, FASTING 100 MG/DL (70-100); POTASSIUM SERUM 3.5 MEQ/L (3.5-5.1); SODIUM LEVEL 139 MEQ/L (136-145)
[2021-08-08] MEDS: ADVAIR HFA 115/21MCG INHALER INH SCH ×2 (07:34→19:20)
[2021-08-08] MEDS: TIOTROPIUM INHALER/CAPSULE (SPIRIVA) INH SCH (07:36)
[2021-08-08] MEDS: DIGOXIN INJ 0.5 MG/2 ML AMP (J1160) IV SCH (08:13)
[2021-08-08] MEDS: PANTOPRAZOLE 40MG VIAL IV SCH ×2 (08:13→20:53)
[2021-08-08] MEDS ORDERED: DIGOXIN INJ 0.5 MG/2 ML AMP (J1160) IV STA ×2 (12:20→14:04)
[2021-08-08] MEDS: KCL 20MEQ in NS 1000ML 1,000 ML IV SCH (14:19)
[2021-08-08] MEDS ORDERED: AMINO AC/ELECTROLYTE/DEX/CALC 2,566 ML IV SCH (18:00)
[2021-08-08 18:11] LABS: HEMATOCRIT 29.5 % (42.0-52.0); HEMOGLOBIN 10.2 g/dl (13.5-17.5); MEAN CORPUSCULAR HEMOGLOBIN 29.6 pg (27.0-33.0); MEAN CORPUSCULAR HGB CONC 34.6 g/dl (32.0-36.5); MEAN CORPUSCULAR VOLUME 85.5 fl (80.0-96.0); PLATELET COUNT, AUTOMATED 139 10^3/uL (150-450); RED BLOOD COUNT 3.45 10^6/uL (4.30-6.10); WHITE BLOOD COUNT 15.1 10^3/uL (4.0-10.0)
[2021-08-08 18:35] LABS: BLOOD UREA NITROGEN 12 MG/DL (7-18); CALCIUM LEVEL 7.6 MG/DL (8.8-10.2); CARBON DIOXIDE LEVEL 27 MEQ/L (21-32); CHLORIDE LEVEL 107 MEQ/L (98-107); CREATININE FOR GFR 0.37 MG/DL (0.70-1.30); GLOMERULAR FILTRATION RATE > 60.0 (>49); GLUCOSE, FASTING 98 MG/DL (70-100); MAGNESIUM LEVEL 1.9 MG/DL (1.8-2.4); POTASSIUM SERUM 3.5 MEQ/L (3.5-5.1); SODIUM LEVEL 140 MEQ/L (136-145)
[2021-08-08] MEDS: NICOTINE 21MG/24HR 1 EA TRANSDERMAL TD SCH (20:53)
[2021-08-09] VITALS (30 sets, daily range): BP systolic 82–132; BP diastolic 50–68
[2021-08-09] MEDS ORDERED: MORPHINE 2 MG/ML 1ML VIAL IV ONE
[2021-08-09] MEDS: MORPHINE 2 MG/ML 1ML VIAL IV PRN ×2 (00:16→16:28)
[2021-08-09] MEDS: KCL 20MEQ in NS 1000ML 1,000 ML IV SCH ×2 (03:37→17:16)
[2021-08-09 04:55] LABS: BASO % 0.1 % (0.0-1.0); EOS # 0.1 10^3/uL (0.0-0.5); EOS % 0.6 % (0.0-3.0); HEMATOCRIT 27.9 % (42.0-52.0); HEMOGLOBIN 9.4 g/dl (13.5-17.5); LYMPH # 1.3 10^3/uL (1.5-5.0); LYMPH % 8.6 % (24.0-44.0); MEAN CORPUSCULAR HEMOGLOBIN 29.4 pg (27.0-33.0); MEAN CORPUSCULAR HGB CONC 33.7 g/dl (32.0-36.5); MEAN CORPUSCULAR VOLUME 87.2 fl (80.0-96.0); NEUTROPHILS # 12.2 10^3/uL (1.5-8.5); NEUTROPHILS % 83.3 % (36.0-66.0); PLATELET COUNT, AUTOMATED 134 10^3/uL (150-450); WHITE BLOOD COUNT 14.6 10^3/uL (4.0-10.0)
[2021-08-09] MEDS: SODIUM CHLORIDE 0.9% INJ 10 ML SYR IV SCH ×2 (04:56→17:17)
[2021-08-09 05:35] LABS: ALBUMIN 1.7 GM/DL (3.2-5.2); ALT/SGPT 18 U/L (12-78); BILIRUBIN,TOTAL 0.8 MG/DL (0.2-1.0); BLOOD UREA NITROGEN 11 MG/DL (7-18); CALCIUM LEVEL 7.8 MG/DL (8.8-10.2); CARBON DIOXIDE LEVEL 29 MEQ/L (21-32); CHLORIDE LEVEL 109 MEQ/L (98-107); CREATININE FOR GFR 0.35 MG/DL (0.70-1.30); DIGOXIN LEVEL 1.4 NG/ML (0.5-2.0); GLOMERULAR FILTRATION RATE > 60.0 (>49); GLUCOSE, FASTING 148 MG/DL (70-100); POTASSIUM SERUM 3.9 MEQ/L (3.5-5.1); SODIUM LEVEL 141 MEQ/L (136-145); TOTAL PROTEIN 4.2 GM/DL (6.4-8.2); TRIGLYCERIDES LEVEL 90 MG/DL (<150)
[2021-08-09] MEDS: ADVAIR HFA 115/21MCG INHALER INH SCH (07:48)
[2021-08-09] MEDS: TIOTROPIUM INHALER/CAPSULE (SPIRIVA) INH SCH (07:49)
[2021-08-09] MEDS: DIGOXIN INJ 0.5 MG/2 ML AMP (J1160) IV SCH (08:30)
[2021-08-09] MEDS: PANTOPRAZOLE 40MG VIAL IV SCH ×2 (08:30→20:03)
[2021-08-09] MEDS ORDERED: AMINO AC/ELECTROLYTE/DEX/CALC 2,566 ML IV SCH (18:00)
[2021-08-09] MEDS: IPRATROPIUM 0.5MG/ALBUTEROL 2.5MG INH SOL UD 3ML (DUONEB) NEB SCH (20:00)
[2021-08-09] MEDS: BUDESONIDE 0.5 MG/2 ML INHALATION SUSPENSION INH SCH (20:00)
[2021-08-09] MEDS: NICOTINE 21MG/24HR 1 EA TRANSDERMAL TD SCH (20:04)
[2021-08-09] MEDS ORDERED: ALBUTEROL SULFATE 2.5 MG/0.5 ML INH NEB SOLN NEB PRN (20:10)
[2021-08-09] MEDS: SENOKOT S TAB PO SCH (21:00)
[2021-08-10] VITALS (17 sets, daily range): BP systolic 90–116; BP diastolic 54–77
[2021-08-10 04:18] LABS: BASO % 0.1 % (0.0-1.0); EOS # 0.2 10^3/uL (0.0-0.5); EOS % 1.3 % (0.0-3.0); HEMATOCRIT 28.9 % (42.0-52.0); HEMOGLOBIN 9.6 g/dl (13.5-17.5); LYMPH % 7.5 % (24.0-44.0); MEAN CORPUSCULAR HEMOGLOBIN 29.4 pg (27.0-33.0); MEAN CORPUSCULAR HGB CONC 33.2 g/dl (32.0-36.5); MEAN CORPUSCULAR VOLUME 88.4 fl (80.0-96.0); MONO % 8.1 % (2.0-8.0); NEUTROPHILS # 10.4 10^3/uL (1.5-8.5); NEUTROPHILS % 82.4 % (36.0-66.0); PLATELET COUNT, AUTOMATED 151 10^3/uL (150-450); RED BLOOD COUNT 3.27 10^6/uL (4.30-6.10); WHITE BLOOD COUNT 12.6 10^3/uL (4.0-10.0)
[2021-08-10 04:40] LABS: BLOOD UREA NITROGEN 10 MG/DL (7-18); CALCIUM LEVEL 7.8 MG/DL (8.8-10.2); CARBON DIOXIDE LEVEL 30 MEQ/L (21-32); CHLORIDE LEVEL 106 MEQ/L (98-107); CREATININE FOR GFR 0.37 MG/DL (0.70-1.30); GLOMERULAR FILTRATION RATE > 60.0 (>49); GLUCOSE, FASTING 109 MG/DL (70-100); POTASSIUM SERUM 3.8 MEQ/L (3.5-5.1); SODIUM LEVEL 138 MEQ/L (136-145)
[2021-08-10 04:42] LABS: ALBUMIN 1.8 GM/DL (3.2-5.2); ALT/SGPT 15 U/L (12-78); BILIRUBIN,TOTAL 0.7 MG/DL (0.2-1.0); BLOOD UREA NITROGEN 10 MG/DL (7-18); CALCIUM LEVEL 8.3 MG/DL (8.8-10.2); CARBON DIOXIDE LEVEL 29 MEQ/L (21-32); CHLORIDE LEVEL 107 MEQ/L (98-107); CREATININE FOR GFR 0.36 MG/DL (0.70-1.30); GLOMERULAR FILTRATION RATE > 60.0 (>49); GLUCOSE, FASTING 112 MG/DL (70-100); POTASSIUM SERUM 3.8 MEQ/L (3.5-5.1); SODIUM LEVEL 140 MEQ/L (136-145); TOTAL PROTEIN 4.8 GM/DL (6.4-8.2); TRIGLYCERIDES LEVEL 47 MG/DL (<150)
[2021-08-10] MEDS: SODIUM CHLORIDE 0.9% INJ 10 ML SYR IV SCH ×2 (06:06→18:00)
[2021-08-10] MEDS: KCL 20MEQ in NS 1000ML 1,000 ML IV SCH ×2 (06:19→19:38)
[2021-08-10] MEDS: MORPHINE 2 MG/ML 1ML VIAL IV PRN ×3 (07:16→19:38)
[2021-08-10] MEDS: BUDESONIDE 0.5 MG/2 ML INHALATION SUSPENSION INH SCH ×2 (07:24→19:58)
[2021-08-10] MEDS: IPRATROPIUM 0.5MG/ALBUTEROL 2.5MG INH SOL UD 3ML (DUONEB) NEB SCH ×3 (07:24→19:58)
[2021-08-10] MEDS: PANTOPRAZOLE 40MG VIAL IV SCH ×2 (09:13→19:39)
[2021-08-10] MEDS: DIGOXIN INJ 0.5 MG/2 ML AMP (J1160) IV SCH (09:13)
[2021-08-10] MEDS ORDERED: AMINO AC/ELECTROLYTE/DEX/CALC 2,566 ML IV SCH (18:00)
[2021-08-10] MEDS: NICOTINE 21MG/24HR 1 EA TRANSDERMAL TD SCH (19:39)
[2021-08-10] MEDS: SENOKOT S TAB PO SCH (19:39)
[2021-08-11] VITALS (15 sets, daily range): BP systolic 94–130; BP diastolic 58–81
[2021-08-11 04:16] LABS: HEMATOCRIT 27.9 % (42.0-52.0); HEMOGLOBIN 9.2 g/dl (13.5-17.5); MEAN CORPUSCULAR HEMOGLOBIN 29.2 pg (27.0-33.0); MEAN CORPUSCULAR VOLUME 88.6 fl (80.0-96.0); PLATELET COUNT, AUTOMATED 158 10^3/uL (150-450); RED BLOOD COUNT 3.15 10^6/uL (4.30-6.10); WHITE BLOOD COUNT 9.9 10^3/uL (4.0-10.0)
[2021-08-11 04:43] LABS: ALBUMIN 1.7 GM/DL (3.2-5.2); ALT/SGPT 14 U/L (12-78); BILIRUBIN,TOTAL 0.6 MG/DL (0.2-1.0); BLOOD UREA NITROGEN 9 MG/DL (7-18); CALCIUM LEVEL 8.3 MG/DL (8.8-10.2); CARBON DIOXIDE LEVEL 30 MEQ/L (21-32); CHLORIDE LEVEL 107 MEQ/L (98-107); CREATININE FOR GFR 0.35 MG/DL (0.70-1.30); GLOMERULAR FILTRATION RATE > 60.0 (>49); GLUCOSE, FASTING 108 MG/DL (70-100); SODIUM LEVEL 141 MEQ/L (136-145); TOTAL PROTEIN 4.7 GM/DL (6.4-8.2); TRIGLYCERIDES LEVEL 37 MG/DL (<150)
[2021-08-11] MEDS: SODIUM CHLORIDE 0.9% INJ 10 ML SYR IV SCH ×2 (06:00→18:00)
[2021-08-11] MEDS: BUDESONIDE 0.5 MG/2 ML INHALATION SUSPENSION INH SCH ×2 (07:20→21:26)
[2021-08-11] MEDS: IPRATROPIUM 0.5MG/ALBUTEROL 2.5MG INH SOL UD 3ML (DUONEB) NEB SCH ×3 (07:20→21:26)
[2021-08-11] MEDS: KCL 20MEQ in NS 1000ML 1,000 ML IV SCH ×2 (09:28→23:41)
[2021-08-11] MEDS: PANTOPRAZOLE 40MG VIAL IV SCH ×2 (09:29→21:36)
[2021-08-11] MEDS: DIGOXIN INJ 0.5 MG/2 ML AMP (J1160) IV SCH (09:29)
[2021-08-11] MEDS: MORPHINE 2 MG/ML 1ML VIAL IV PRN ×2 (12:08→20:30)
[2021-08-11] MEDS ORDERED: AMINO AC/ELECTROLYTE/DEX/CALC 2,566 ML IV SCH (18:00)
[2021-08-11] MEDS: SENOKOT S TAB PO SCH (21:00)
[2021-08-11] MEDS: NICOTINE 21MG/24HR 1 EA TRANSDERMAL TD SCH (21:37)
[2021-08-12] VITALS (8 sets, daily range): BP systolic 86–108; BP diastolic 53–75
[2021-08-12] MEDS ORDERED: ACETAMINOPHEN 650 MG SUPP PR ONE (00:10)
[2021-08-12 04:16] LABS: HEMATOCRIT 28.6 % (42.0-52.0); HEMOGLOBIN 9.6 g/dl (13.5-17.5); MEAN CORPUSCULAR HEMOGLOBIN 29.7 pg (27.0-33.0); MEAN CORPUSCULAR HGB CONC 33.6 g/dl (32.0-36.5); MEAN CORPUSCULAR VOLUME 88.5 fl (80.0-96.0); PLATELET COUNT, AUTOMATED 189 10^3/uL (150-450); RED BLOOD COUNT 3.23 10^6/uL (4.30-6.10)
[2021-08-12] MEDS: SODIUM CHLORIDE 0.9% INJ 10 ML SYR IV SCH ×2 (04:31→18:00)
[2021-08-12 04:48] LABS: ALBUMIN 1.8 GM/DL (3.2-5.2); ALT/SGPT 14 U/L (12-78); BILIRUBIN,TOTAL 0.8 MG/DL (0.2-1.0); BLOOD UREA NITROGEN 10 MG/DL (7-18); CALCIUM LEVEL 8.4 MG/DL (8.8-10.2); CARBON DIOXIDE LEVEL 29 MEQ/L (21-32); CHLORIDE LEVEL 105 MEQ/L (98-107); CREATININE FOR GFR 0.42 MG/DL (0.70-1.30); GLOMERULAR FILTRATION RATE > 60.0 (>49); GLUCOSE, FASTING 106 MG/DL (70-100); POTASSIUM SERUM 4.1 MEQ/L (3.5-5.1); SODIUM LEVEL 139 MEQ/L (136-145); TRIGLYCERIDES LEVEL 39 MG/DL (<150)
[2021-08-12] MEDS: BUDESONIDE 0.5 MG/2 ML INHALATION SUSPENSION INH SCH ×2 (08:05→20:00)
[2021-08-12] MEDS: IPRATROPIUM 0.5MG/ALBUTEROL 2.5MG INH SOL UD 3ML (DUONEB) NEB SCH ×3 (08:06→20:00)
[2021-08-12] MEDS: DIGOXIN INJ 0.5 MG/2 ML AMP (J1160) IV SCH (08:50)
[2021-08-12] MEDS: PANTOPRAZOLE 40MG VIAL IV SCH ×2 (08:50→21:37)
[2021-08-12] MEDS: MORPHINE 2 MG/ML 1ML VIAL IV PRN ×3 (08:53→16:50)
[2021-08-12] MEDS ORDERED: AMINO AC/ELECTROLYTE/DEX/CALC 2,566 ML IV SCH (18:00)
[2021-08-12] MEDS ORDERED: cefoTEtan DISODIUM 2 GM in D5W MINI-BAG PLUS 50 ML IV ONE (18:25)
[2021-08-12] MEDS ORDERED: cefoTEtan 2GM VIAL As Ordered ONE (19:21)
[2021-08-12] MEDS ORDERED: MIDAZOLAM INJ 2MG/2ML VIAL (J2250 PER 1MG) As Ordered ONE (19:35)
[2021-08-12] MEDS ORDERED: fentaNYL 100 MCG/2 ML INJECTION As Ordered ONE (19:35)
[2021-08-12] MEDS ORDERED: propofoL 200 MG/20 ML VIAL As Ordered ONE (19:35)
[2021-08-12] MEDS ORDERED: PHENYLephrine 500MCG 5ML (100MCG/ML) SYRINGE As Ordered ONE ×2 (19:35→19:38)
[2021-08-12] MEDS ORDERED: dexameTHASONE 4 MG/ML 1ML VIAL (J1100 PER 1MG) As Ordered ONE (19:35)
[2021-08-12] MEDS ORDERED: ONDANSETRON 4MG/2ML VIAL As Ordered ONE (19:35)
[2021-08-12] MEDS ORDERED: LIDOCAINE 2% 100MG/5ML SDV (FOR ANES.) As Ordered ONE (19:35)
[2021-08-12] MEDS ORDERED: ONDANSETRON 4MG/2ML VIAL IV PRN (20:05)
[2021-08-12] MEDS ORDERED: NS 1,000 ML IV SCH (20:05)
[2021-08-12] MEDS: SENOKOT S TAB PO SCH (21:37)
[2021-08-12] MEDS: NICOTINE 21MG/24HR 1 EA TRANSDERMAL TD SCH (21:37)
[2021-08-13] VITALS (10 sets, daily range): BP systolic 87–115; BP diastolic 56–69; O2SAT 83–97
[2021-08-13 04:43] LABS: HEMATOCRIT 29.7 % (42.0-52.0); HEMOGLOBIN 9.7 g/dl (13.5-17.5); MEAN CORPUSCULAR HEMOGLOBIN 28.9 pg (27.0-33.0); MEAN CORPUSCULAR HGB CONC 32.7 g/dl (32.0-36.5); MEAN CORPUSCULAR VOLUME 88.4 fl (80.0-96.0); PLATELET COUNT, AUTOMATED 206 10^3/uL (150-450); RED BLOOD COUNT 3.36 10^6/uL (4.30-6.10); WHITE BLOOD COUNT 15.9 10^3/uL (4.0-10.0)
[2021-08-13] MEDS: SODIUM CHLORIDE 0.9% INJ 10 ML SYR IV SCH ×2 (05:05→18:07)
[2021-08-13 05:07] LABS: ALBUMIN 1.7 GM/DL (3.2-5.2); ALT/SGPT 13 U/L (12-78); BILIRUBIN,TOTAL 0.5 MG/DL (0.2-1.0); BLOOD UREA NITROGEN 12 MG/DL (7-18); CALCIUM LEVEL 9.1 MG/DL (8.8-10.2); CARBON DIOXIDE LEVEL 27 MEQ/L (21-32); CHLORIDE LEVEL 102 MEQ/L (98-107); GLOMERULAR FILTRATION RATE > 60.0 (>49); GLUCOSE, FASTING 159 MG/DL (70-100); POTASSIUM SERUM 4.3 MEQ/L (3.5-5.1); SODIUM LEVEL 136 MEQ/L (136-145); TRIGLYCERIDES LEVEL 39 MG/DL (<150)
[2021-08-13] MEDS: PANTOPRAZOLE 40MG VIAL IV SCH (08:36)
[2021-08-13] MEDS: DIGOXIN INJ 0.5 MG/2 ML AMP (J1160) IV SCH (08:37)
[2021-08-13] MEDS: MORPHINE 2 MG/ML 1ML VIAL IV PRN ×3 (08:54→15:34)
[2021-08-13] MEDS: IPRATROPIUM 0.5MG/ALBUTEROL 2.5MG INH SOL UD 3ML (DUONEB) NEB SCH ×3 (08:57→20:33)
[2021-08-13] MEDS: BUDESONIDE 0.5 MG/2 ML INHALATION SUSPENSION INH SCH ×2 (08:57→20:33)
[2021-08-13] MEDS: GABAPENTIN 300 MG CAP GT SCH ×3 (13:00→20:23)
[2021-08-13] MEDS: ENOXAPARIN 40MG/0.4ML SYRINGE (J1650 PER 10MG) SC SCH (18:07)
[2021-08-13] MEDS: SENOKOT S TAB GT SCH (20:23)
[2021-08-13] MEDS: NICOTINE 21MG/24HR 1 EA TRANSDERMAL TD SCH (20:23)
[2021-08-14] VITALS (24 sets, daily range): BP systolic 81–131; BP diastolic 50–68
[2021-08-14] MEDS: MORPHINE 2 MG/ML 1ML VIAL IV PRN (04:04)
[2021-08-14 04:15] LABS: HEMATOCRIT 29.6 % (42.0-52.0); HEMOGLOBIN 9.7 g/dl (13.5-17.5); MEAN CORPUSCULAR HEMOGLOBIN 29.3 pg (27.0-33.0); MEAN CORPUSCULAR HGB CONC 32.8 g/dl (32.0-36.5); MEAN CORPUSCULAR VOLUME 89.4 fl (80.0-96.0); PLATELET COUNT, AUTOMATED 248 10^3/uL (150-450); RED BLOOD COUNT 3.31 10^6/uL (4.30-6.10); WHITE BLOOD COUNT 10.5 10^3/uL (4.0-10.0)
[2021-08-14 05:12] LABS: ALBUMIN 1.8 GM/DL (3.2-5.2); ALT/SGPT 19 U/L (12-78); BILIRUBIN,TOTAL 0.5 MG/DL (0.2-1.0); BLOOD UREA NITROGEN 13 MG/DL (7-18); CALCIUM LEVEL 8.2 MG/DL (8.8-10.2); CARBON DIOXIDE LEVEL 31 MEQ/L (21-32); CHLORIDE LEVEL 101 MEQ/L (98-107); CREATININE FOR GFR 0.67 MG/DL (0.70-1.30); GLOMERULAR FILTRATION RATE > 60.0 (>49); GLUCOSE, FASTING 97 MG/DL (70-100); SODIUM LEVEL 136 MEQ/L (136-145); TOTAL PROTEIN 5.2 GM/DL (6.4-8.2); TRIGLYCERIDES LEVEL 59 MG/DL (<150)
[2021-08-14] MEDS: SODIUM CHLORIDE 0.9% INJ 10 ML SYR IV SCH ×2 (06:15→17:57)
[2021-08-14] MEDS ORDERED: ACETAMINOPHEN TAB 650MG DOSE (2X325MG) GT ONE (06:15)
[2021-08-14] MEDS: BUDESONIDE 0.5 MG/2 ML INHALATION SUSPENSION INH SCH ×2 (08:01→19:23)
[2021-08-14] MEDS: IPRATROPIUM 0.5MG/ALBUTEROL 2.5MG INH SOL UD 3ML (DUONEB) NEB SCH ×3 (08:01→19:23)
[2021-08-14] MEDS: ACETAMINOPHEN 325 MG/10.15 ML UDC GT PRN ×2 (08:35→12:56)
[2021-08-14] MEDS: OMEPRAZOLE SUSPENSION 20MG 10ML ORAL SYRINGE GT SCH (08:35)
[2021-08-14] MEDS: DIGOXIN 0.125 MG TAB GT SCH (08:36)
[2021-08-14] MEDS: GABAPENTIN 300 MG CAP GT SCH ×4 (08:36→20:22)
[2021-08-14] MEDS: ENOXAPARIN 40MG/0.4ML SYRINGE (J1650 PER 10MG) SC SCH (08:36)
[2021-08-14] MEDS ORDERED: NS 500 ML IV ONE (13:00)
[2021-08-14] MEDS: KCL 20MEQ in NS 1000ML 1,000 ML IV SCH ×2 (14:30→22:16)
[2021-08-14] MEDS ORDERED: NS 1,000 ML IV ONE (16:25)
[2021-08-14] MEDS ORDERED: GLUCAGON INJ 1MG VIAL SC PRN (17:50)
[2021-08-14] MEDS ORDERED: GLUCOSE 4GM CHEW TABLET PO PRN (17:50)
[2021-08-14] MEDS ORDERED: DEXTROSE 50% 50 ML SYRINGE IV PRN (17:50)
[2021-08-14] MEDS: NICOTINE 21MG/24HR 1 EA TRANSDERMAL TD SCH (20:22)
[2021-08-14] MEDS: SENOKOT S TAB GT SCH (20:22)
[2021-08-15] VITALS (11 sets, daily range): BP systolic 95–113; BP diastolic 58–68
[2021-08-15 03:53] LABS: HEMATOCRIT 27.1 % (42.0-52.0); HEMOGLOBIN 8.8 g/dl (13.5-17.5); MEAN CORPUSCULAR HEMOGLOBIN 29.6 pg (27.0-33.0); MEAN CORPUSCULAR HGB CONC 32.5 g/dl (32.0-36.5); MEAN CORPUSCULAR VOLUME 91.2 fl (80.0-96.0); PLATELET COUNT, AUTOMATED 262 10^3/uL (150-450); RED BLOOD COUNT 2.97 10^6/uL (4.30-6.10); WHITE BLOOD COUNT 9.8 10^3/uL (4.0-10.0)
[2021-08-15 04:22] LABS: ALBUMIN 1.7 GM/DL (3.2-5.2); ALT/SGPT 17 U/L (12-78); BILIRUBIN,TOTAL 0.3 MG/DL (0.2-1.0); BLOOD UREA NITROGEN 12 MG/DL (7-18); CALCIUM LEVEL 8.4 MG/DL (8.8-10.2); CARBON DIOXIDE LEVEL 30 MEQ/L (21-32); CHLORIDE LEVEL 107 MEQ/L (98-107); GLOMERULAR FILTRATION RATE > 60.0 (>49); GLUCOSE, FASTING 121 MG/DL (70-100); POTASSIUM SERUM 4.5 MEQ/L (3.5-5.1); SODIUM LEVEL 141 MEQ/L (136-145); TRIGLYCERIDES LEVEL 40 MG/DL (<150)
[2021-08-15] MEDS: KCL 20MEQ in NS 1000ML 1,000 ML IV SCH (06:37)
[2021-08-15] MEDS: SODIUM CHLORIDE 0.9% INJ 10 ML SYR IV SCH ×2 (06:37→17:03)
[2021-08-15] MEDS: BUDESONIDE 0.5 MG/2 ML INHALATION SUSPENSION INH SCH ×2 (07:47→19:42)
[2021-08-15] MEDS: IPRATROPIUM 0.5MG/ALBUTEROL 2.5MG INH SOL UD 3ML (DUONEB) NEB SCH ×3 (07:47→19:42)
[2021-08-15] MEDS: GABAPENTIN 300 MG CAP GT SCH ×4 (08:16→20:14)
[2021-08-15] MEDS: DIGOXIN 0.125 MG TAB GT SCH (08:16)
[2021-08-15] MEDS: ACETAMINOPHEN 325 MG/10.15 ML UDC GT PRN ×4 (08:16→22:45)
[2021-08-15] MEDS: ENOXAPARIN 40MG/0.4ML SYRINGE (J1650 PER 10MG) SC SCH (08:17)
[2021-08-15] MEDS: OMEPRAZOLE SUSPENSION 20MG 10ML ORAL SYRINGE GT SCH (08:17)
[2021-08-15] MEDS: SENOKOT S TAB GT SCH (20:14)
[2021-08-15] MEDS: NICOTINE 21MG/24HR 1 EA TRANSDERMAL TD SCH (20:16)
[2021-08-16] VITALS (8 sets, daily range): BP systolic 88–115; BP diastolic 52–71
[2021-08-16] MEDS ORDERED: NS 500 ML IV ONE (04:10)
[2021-08-16] MEDS ORDERED: ASPIRIN 325 MG TAB GT ONE (04:50)
[2021-08-16] MEDS ORDERED: KETOROLAC 30 MG/ML 1ML VIAL IV ONE (04:55)
[2021-08-16] MEDS: SODIUM CHLORIDE 0.9% INJ 10 ML SYR IV SCH ×2 (05:07→17:51)
[2021-08-16 05:17] LABS: HEMATOCRIT 28.7 % (42.0-52.0); HEMOGLOBIN 9.1 g/dl (13.5-17.5); MEAN CORPUSCULAR HEMOGLOBIN 29.1 pg (27.0-33.0); MEAN CORPUSCULAR HGB CONC 31.7 g/dl (32.0-36.5); MEAN CORPUSCULAR VOLUME 91.7 fl (80.0-96.0); PLATELET COUNT, AUTOMATED 281 10^3/uL (150-450); RED BLOOD COUNT 3.13 10^6/uL (4.30-6.10); WHITE BLOOD COUNT 7.9 10^3/uL (4.0-10.0)
[2021-08-16 06:23] LABS: CK-MB VALUE MASS 1.3 NG/ML (<3.6); MB/CK RELATIVE INDEX 5.91 (< OR =4)
[2021-08-16 06:24] LABS: BLOOD UREA NITROGEN 9 MG/DL (7-18); CALCIUM LEVEL 8.5 MG/DL (8.8-10.2); CARBON DIOXIDE LEVEL 30 MEQ/L (21-32); CHLORIDE LEVEL 107 MEQ/L (98-107); CREATININE FOR GFR 0.36 MG/DL (0.70-1.30); GLOMERULAR FILTRATION RATE > 60.0 (>49); GLUCOSE, FASTING 113 MG/DL (70-100); NT-PRO BNP 723 PG/ML (<125); POTASSIUM SERUM 4.5 MEQ/L (3.5-5.1); SODIUM LEVEL 141 MEQ/L (136-145)
[2021-08-16] MEDS: BUDESONIDE 0.5 MG/2 ML INHALATION SUSPENSION INH SCH ×2 (07:25→20:40)
[2021-08-16] MEDS: IPRATROPIUM 0.5MG/ALBUTEROL 2.5MG INH SOL UD 3ML (DUONEB) NEB SCH ×3 (07:25→20:40)
[2021-08-16 07:57] LABS: CK-MB VALUE MASS 1.4 NG/ML (<3.6)
[2021-08-16] MEDS: APIXABAN 5 MG TAB (ELIQUIS) PEG SCH ×2 (09:00→21:49)
[2021-08-16] MEDS: GABAPENTIN 300 MG CAP GT SCH ×4 (09:05→21:49)
[2021-08-16] MEDS: OMEPRAZOLE SUSPENSION 20MG 10ML ORAL SYRINGE GT SCH (09:05)
[2021-08-16] MEDS: DIGOXIN 0.125 MG TAB GT SCH (09:06)
[2021-08-16] MEDS: ACETAMINOPHEN 325 MG/10.15 ML UDC GT PRN (12:16)
[2021-08-16] MEDS: NICOTINE 21MG/24HR 1 EA TRANSDERMAL TD SCH (21:48)
[2021-08-16] MEDS: SENOKOT S TAB GT SCH (21:49)
[2021-08-17] VITALS (7 sets, daily range): BP systolic 86–113; BP diastolic 60–71
[2021-08-17 05:18] LABS: HEMATOCRIT 28.4 % (42.0-52.0); HEMOGLOBIN 9.2 g/dl (13.5-17.5); MEAN CORPUSCULAR HEMOGLOBIN 29.2 pg (27.0-33.0); MEAN CORPUSCULAR HGB CONC 32.4 g/dl (32.0-36.5); MEAN CORPUSCULAR VOLUME 90.2 fl (80.0-96.0); PLATELET COUNT, AUTOMATED 318 10^3/uL (150-450); RED BLOOD COUNT 3.15 10^6/uL (4.30-6.10); WHITE BLOOD COUNT 7.4 10^3/uL (4.0-10.0)
[2021-08-17] MEDS: SODIUM CHLORIDE 0.9% INJ 10 ML SYR IV SCH ×2 (06:49→16:24)
[2021-08-17 07:03] LABS: BLOOD UREA NITROGEN 10 MG/DL (7-18); CALCIUM LEVEL 8.8 MG/DL (8.8-10.2); CARBON DIOXIDE LEVEL 30 MEQ/L (21-32); CHLORIDE LEVEL 102 MEQ/L (98-107); CREATININE FOR GFR 0.32 MG/DL (0.70-1.30); GLOMERULAR FILTRATION RATE > 60.0 (>49); GLUCOSE, FASTING 102 MG/DL (70-100); MAGNESIUM LEVEL 2.1 MG/DL (1.8-2.4); POTASSIUM SERUM 4.5 MEQ/L (3.5-5.1); SODIUM LEVEL 138 MEQ/L (136-145)
[2021-08-17] MEDS: IPRATROPIUM 0.5MG/ALBUTEROL 2.5MG INH SOL UD 3ML (DUONEB) NEB SCH ×3 (07:08→19:41)
[2021-08-17] MEDS: BUDESONIDE 0.5 MG/2 ML INHALATION SUSPENSION INH SCH ×2 (07:08→19:41)
[2021-08-17] MEDS: GABAPENTIN 300 MG CAP GT SCH ×4 (08:38→20:24)
[2021-08-17] MEDS: OMEPRAZOLE SUSPENSION 20MG 10ML ORAL SYRINGE GT SCH (08:38)
[2021-08-17] MEDS: DIGOXIN 0.125 MG TAB GT SCH (08:39)
[2021-08-17] MEDS: APIXABAN 5 MG TAB (ELIQUIS) PEG SCH ×2 (08:39→20:24)
[2021-08-17] MEDS ORDERED: NS 500 ML IV ONE (20:05)
[2021-08-17] MEDS: ACETAMINOPHEN 325 MG/10.15 ML UDC GT PRN (20:23)
[2021-08-17] MEDS: NICOTINE 21MG/24HR 1 EA TRANSDERMAL TD SCH (20:24)
[2021-08-17] MEDS: SENOKOT S TAB GT SCH (20:24)
[2021-08-18 04:00] VITALS: BP 104/61
[2021-08-18] MEDS: SODIUM CHLORIDE 0.9% INJ 10 ML SYR IV SCH ×2 (05:06→17:14)
[2021-08-18 05:20] LABS: BASO % 0.2 % (0.0-1.0); EOS # 0.3 10^3/uL (0.0-0.5); EOS % 2.8 % (0.0-3.0); HEMATOCRIT 27.9 % (42.0-52.0); HEMOGLOBIN 8.9 g/dl (13.5-17.5); LYMPH # 0.8 10^3/uL (1.5-5.0); MEAN CORPUSCULAR HEMOGLOBIN 29.1 pg (27.0-33.0); MEAN CORPUSCULAR HGB CONC 31.9 g/dl (32.0-36.5); MEAN CORPUSCULAR VOLUME 91.2 fl (80.0-96.0); MONO # 0.7 10^3/uL (0.0-0.8); MONO % 7.6 % (2.0-8.0); NEUTROPHILS # 7.6 10^3/uL (1.5-8.5); NEUTROPHILS % 80.8 % (36.0-66.0); PLATELET COUNT, AUTOMATED 344 10^3/uL (150-450); RED BLOOD COUNT 3.06 10^6/uL (4.30-6.10); WHITE BLOOD COUNT 9.4 10^3/uL (4.0-10.0)
[2021-08-18 05:46] LABS: BLOOD UREA NITROGEN 15 MG/DL (7-18); CARBON DIOXIDE LEVEL 33 MEQ/L (21-32); CHLORIDE LEVEL 100 MEQ/L (98-107); GLOMERULAR FILTRATION RATE > 60.0 (>49); GLUCOSE, FASTING 85 MG/DL (70-100); POTASSIUM SERUM 4.3 MEQ/L (3.5-5.1); SODIUM LEVEL 137 MEQ/L (136-145)
[2021-08-18 07:38] VITALS: BP 98/58
[2021-08-18] MEDS: IPRATROPIUM 0.5MG/ALBUTEROL 2.5MG INH SOL UD 3ML (DUONEB) NEB SCH ×3 (07:56→19:39)
[2021-08-18] MEDS: BUDESONIDE 0.5 MG/2 ML INHALATION SUSPENSION INH SCH ×2 (07:56→19:39)
[2021-08-18] MEDS: APIXABAN 5 MG TAB (ELIQUIS) PEG SCH ×2 (08:42→20:13)
[2021-08-18] MEDS: OMEPRAZOLE SUSPENSION 20MG 10ML ORAL SYRINGE GT SCH (08:42)
[2021-08-18] MEDS: GABAPENTIN 300 MG CAP GT SCH ×4 (08:42→20:13)
[2021-08-18] MEDS: DIGOXIN 0.125 MG TAB GT SCH (08:42)
[2021-08-18 11:50] VITALS: BP 99/64
[2021-08-18] MEDS ORDERED: DIGO0.123 GT (13:33)
[2021-08-18] MEDS ORDERED: ALBU2.5V10 INH (13:33)
[2021-08-18] MEDS ORDERED: BUDE0.5S6 INH (13:33)
[2021-08-18] MEDS ORDERED: ELIQ5TAB PEG (13:33)
[2021-08-18] MEDS ORDERED: SENN-52 GT (13:33)
[2021-08-18] MEDS ORDERED: GABA-282 GT (13:33)
[2021-08-18] MEDS ORDERED: IPRA0.00 NEB (14:05)
[2021-08-18] MEDS ORDERED: NICO21PAT TD (14:05)
[2021-08-18] MEDS ORDERED: LANS30CA GT (14:17)
[2021-08-18 16:06] VITALS: BP 98/57
[2021-08-18] MEDS: ACETAMINOPHEN 325 MG/10.15 ML UDC GT PRN (16:11)
[2021-08-18] MEDS ORDERED: OMEP40CA4 GT (17:04)
[2021-08-18 20:00] VITALS: BP 107/63
[2021-08-18] MEDS: NICOTINE 21MG/24HR 1 EA TRANSDERMAL TD SCH (20:13)
[2021-08-18] MEDS: SENOKOT S TAB GT SCH (20:13)
[2021-08-19] MEDS: SODIUM CHLORIDE 0.9% INJ 10 ML SYR IV SCH (04:44)
[2021-08-19 05:22] LABS: BASO % 0.5 % (0.0-1.0); EOS # 0.2 10^3/uL (0.0-0.5); EOS % 3.8 % (0.0-3.0); HEMATOCRIT 28.7 % (42.0-52.0); HEMOGLOBIN 9.1 g/dl (13.5-17.5); LYMPH # 0.8 10^3/uL (1.5-5.0); MEAN CORPUSCULAR HEMOGLOBIN 28.8 pg (27.0-33.0); MEAN CORPUSCULAR HGB CONC 31.7 g/dl (32.0-36.5); MEAN CORPUSCULAR VOLUME 90.8 fl (80.0-96.0); MONO # 0.7 10^3/uL (0.0-0.8); MONO % 10.6 % (2.0-8.0); NEUTROPHILS # 4.6 10^3/uL (1.5-8.5); NEUTROPHILS % 72.5 % (36.0-66.0); PLATELET COUNT, AUTOMATED 366 10^3/uL (150-450); RED BLOOD COUNT 3.16 10^6/uL (4.30-6.10); WHITE BLOOD COUNT 6.4 10^3/uL (4.0-10.0)
[2021-08-19 05:51] LABS: BLOOD UREA NITROGEN 12 MG/DL (7-18); CARBON DIOXIDE LEVEL 31 MEQ/L (21-32); CHLORIDE LEVEL 102 MEQ/L (98-107); GLOMERULAR FILTRATION RATE > 60.0 (>49); GLUCOSE, FASTING 98 MG/DL (70-100); MAGNESIUM LEVEL 2.1 MG/DL (1.8-2.4); POTASSIUM SERUM 4.6 MEQ/L (3.5-5.1); SODIUM LEVEL 137 MEQ/L (136-145)
[2021-08-19] MEDS: BUDESONIDE 0.5 MG/2 ML INHALATION SUSPENSION INH SCH (07:39)
[2021-08-19] MEDS: IPRATROPIUM 0.5MG/ALBUTEROL 2.5MG INH SOL UD 3ML (DUONEB) NEB SCH ×2 (07:39→16:12)
[2021-08-19 08:04] VITALS: BP 107/62
[2021-08-19] MEDS: GABAPENTIN 300 MG CAP GT SCH ×3 (08:33→16:10)
[2021-08-19] MEDS: APIXABAN 5 MG TAB (ELIQUIS) PEG SCH (08:33)
[2021-08-19] MEDS: OMEPRAZOLE SUSPENSION 20MG 10ML ORAL SYRINGE GT SCH (08:33)
[2021-08-19] MEDS: DIGOXIN 0.125 MG TAB GT SCH (08:34)
[2021-08-19 12:26] VITALS: BP 107/62
[2021-08-19] MEDS ORDERED: NEOSPORIN OINT 0.9 GM PKT TOP ONE (14:25)
[2021-08-19] MEDS ORDERED: OMEP40CA4 GT (15:25)
== END 2021-08-19 16:50 | disposition home health service (06) | DRG 11 ==
LOC: M 4MAIN 11:10 → M ICU 07-30 13:40 → M MSPAV 08-06 18:34 → M ICU 08-07 01:06 → M PCU 08-15 15:31
PROVIDERS: ADMIT Internal Medicine; ATTEND Internal Medicine
PROC: XW033E5 Introduction of Remdesivir Anti-infective into Peripheral Vein, Percutaneous Approach, New Technology Group 5 (ICD-10-PCS; 2021-07-28)
PROC: 3E0333Z Introduction of Anti-inflammatory into Peripheral Vein, Percutaneous Approach (ICD-10-PCS; 2021-07-28)
PROC: 0B110F4 Bypass Trachea to Cutaneous with Tracheostomy Device, Open Approach (ICD-10-PCS; principal; 2021-07-30 07:30)
PROC: 0CBS8ZX Excision of Larynx, Via Natural or Artificial Opening Endoscopic, Diagnostic (ICD-10-PCS; 2021-07-30 07:30)
PROC: 02HV33Z Insertion of Infusion Device into Superior Vena Cava, Percutaneous Approach (ICD-10-PCS; 2021-08-04)
PROC: 3E0436Z Introduction of Nutritional Substance into Central Vein, Percutaneous Approach (ICD-10-PCS; 2021-08-06)
PROC: 0W3P8ZZ Control Bleeding in Gastrointestinal Tract, Via Natural or Artificial Opening Endoscopic (ICD-10-PCS; 2021-08-07)
PROC: 0DB78ZX Excision of Stomach, Pylorus, Via Natural or Artificial Opening Endoscopic, Diagnostic (ICD-10-PCS; 2021-08-07)
PROC: 0DB98ZX Excision of Duodenum, Via Natural or Artificial Opening Endoscopic, Diagnostic (ICD-10-PCS; 2021-08-07)
PROC: 30233N1 Transfusion of Nonautologous Red Blood Cells into Peripheral Vein, Percutaneous Approach (ICD-10-PCS; 2021-08-07)
PROC: 0DH68UZ Insertion of Feeding Device into Stomach, Via Natural or Artificial Opening Endoscopic (ICD-10-PCS; 2021-08-12)
DX: C32.1 Malignant neoplasm of supraglottis (principal); U07.1 COVID-19; K26.4 Chronic or unspecified duodenal ulcer with hemorrhage; F10.131 Alcohol abuse with withdrawal delirium; D62 Acute posthemorrhagic anemia; E46 Unspecified protein-calorie malnutrition; Z68.1 Body mass index [BMI] 19.9 or less, adult; I48.0 Paroxysmal atrial fibrillation; K59.00 Constipation, unspecified; I95.9 Hypotension, unspecified; J44.9 Chronic obstructive pulmonary disease, unspecified; F17.210 Nicotine dependence, cigarettes, uncomplicated; I27.20 Pulmonary hypertension, unspecified; I10 Essential (primary) hypertension; E86.0 Dehydration; F32.A Depression, unspecified; M54.2 Cervicalgia; R13.10 Dysphagia, unspecified; I16.0 Hypertensive urgency; Z91.19 Patient's noncompliance with other medical treatment and regimen; Z85.828 Personal history of other malignant neoplasm of skin; Z79.899 Other long term (current) drug therapy; Z96.641 Presence of right artificial hip joint

== ENCOUNTER 2021-07-30 09:20 | Outpatient (RCR) | payer MEDICARE, MEDICAID ==
[~2021-07-30 09:20] MED LIST changes: +LIDOCAINE W/EPINEPHRINE 1% 20ML VIAL As Ordered ONE; +METHYLENE BLUE 0.5% (5MG/ML) 10 ML AMP (PROVAYBLUE) As Ordered ONE; +OXYMETAZOLINE 0.05% NASAL SPRAY (AFRIN) As Ordered ONE; +PHENYLEPHRINE 0.5% NASAL SPRAY 15 ML As Ordered ONE
[2021-07-30] MEDS ORDERED: CEFUROXIME INJ 1.5 GM VIAL (J0697 PER 750MG) As Ordered ONE (09:24)
== END 2021-08-04 ==
LOC: M ONCR 09:20
PROVIDERS: ATTEND General Practice
DX: C32.0 Malignant neoplasm of glottis (principal); J44.9 Chronic obstructive pulmonary disease, unspecified; M81.0 Age-related osteoporosis without current pathological fracture; F17.200 Nicotine dependence, unspecified, uncomplicated; Z93.0 Tracheostomy status; Z98.890 Other specified postprocedural states; Z82.49 Family history of ischemic heart disease and other diseases of the circulatory system; Z80.1 Family history of malignant neoplasm of trachea, bronchus and lung; Z86.16 Personal history of COVID-19

== ENCOUNTER 2021-08-19 09:00 | Outpatient (RCR) | payer MEDICARE, MEDICAID ==
[~2021-08-19 09:00] MED LIST changes: +ALBU2.5V10 INH; +BARIUM SULFATE 700 MG TABLET (E-Z-DISK) As Ordered ONE; +BUDE0.5S6 INH; +DIGO0.123 GT; +E-Z-PAQUE 96% w/w SUSP 176GM BTL As Ordered ONE; +ELIQ5TAB PEG; +EPINEPHrine 1MG/10ML SYRINGE 1.5IN As Ordered ONE; +GABA-282 GT; +IPRA0.00 NEB; +LANS30CA GT; -LIDOCAINE W/EPINEPHRINE 1% 20ML VIAL As Ordered ONE; -METHYLENE BLUE 0.5% (5MG/ML) 10 ML AMP (PROVAYBLUE) As Ordered ONE; +NICO21PAT TD; +OMEP40CA4 GT; -OXYMETAZOLINE 0.05% NASAL SPRAY (AFRIN) As Ordered ONE; -PHENYLEPHRINE 0.5% NASAL SPRAY 15 ML As Ordered ONE; +SENN-52 GT; +VARIBAR NECTAR 40% w/v 240ML SUSP BTL As Ordered ONE; +VARIBAR PUDDING 40% w/v 230ML TUBE As Ordered ONE
[2021-08-19] MEDS ORDERED: OMEP40CA4 GT (15:25)
[2021-08-21] MEDS ORDERED: OMEP40CA4 GT (15:33)
[2021-08-21] MEDS ORDERED: CARA1TAB6 GT (15:33)
[2021-08-21] MEDS ORDERED: AZIT500T5 GT (15:33)
[2021-08-21] MEDS ORDERED: CEFU50TA GT (15:33)
[2021-08-21] MEDS ORDERED: DOXY-350 GT (18:48)
== END 2021-09-03 ==
LOC: M ONCR 09:00
PROVIDERS: ATTEND General Practice
DX: C32.0 Malignant neoplasm of glottis (principal); K31.89 Other diseases of stomach and duodenum; I48.91 Unspecified atrial fibrillation; G89.3 Neoplasm related pain (acute) (chronic); K92.2 Gastrointestinal hemorrhage, unspecified; D62 Acute posthemorrhagic anemia; E46 Unspecified protein-calorie malnutrition; Z93.0 Tracheostomy status
CPT/HCPCS: 77300; 77301; 77338; 77470; 88305; J0171

== ENCOUNTER 2021-08-20 13:34 | Inpatient (IN) | payer MEDICARE, MEDICAID ==
[~2021-08-20] VITALS: Ht 185.4 cm; Wt 60.1 kg
[~2021-08-20 13:34] MED LIST changes: -BARIUM SULFATE 700 MG TABLET (E-Z-DISK) As Ordered ONE; -E-Z-PAQUE 96% w/w SUSP 176GM BTL As Ordered ONE; -EPINEPHrine 1MG/10ML SYRINGE 1.5IN As Ordered ONE; -VARIBAR NECTAR 40% w/v 240ML SUSP BTL As Ordered ONE; -VARIBAR PUDDING 40% w/v 230ML TUBE As Ordered ONE
[2021-08-20 14:31] LABS: HEMATOCRIT 21.5 % (42.0-52.0); MEAN CORPUSCULAR HGB CONC 31.2 g/dl (32.0-36.5); MEAN CORPUSCULAR VOLUME 93.1 fl (80.0-96.0); PLATELET COUNT, AUTOMATED 291 10^3/uL (150-450); RED BLOOD COUNT 2.31 10^6/uL (4.30-6.10); WHITE BLOOD COUNT 11.7 10^3/uL (4.0-10.0)
[2021-08-20 14:38] LABS: HEMOGLOBIN 6.7 g/dl (13.5-17.5)
[2021-08-20 14:56] LABS: BLOOD UREA NITROGEN 17 MG/DL (7-18); CARBON DIOXIDE LEVEL 27 MEQ/L (21-32); CHLORIDE LEVEL 103 MEQ/L (98-107); GLOMERULAR FILTRATION RATE > 60.0 (>49); GLUCOSE, FASTING 103 MG/DL (70-100); POTASSIUM SERUM 4.7 MEQ/L (3.5-5.1); SODIUM LEVEL 137 MEQ/L (136-145)
[2021-08-20 15:14] LABS: ATYPICAL LYMPH 1 % (0-5); LYMPHOCYTES 3 % (16-44); MONOCYTES 3 % (0-5); NEUTROPHILS 64 % (28-66)
[2021-08-20 15:16] LABS: OVALOCYTES 1+; PLATELET ESTIMATE NORMAL (NORMAL)
[2021-08-20] MEDS ORDERED: PIPERACILLIN/TAZOBACTAM SOD 3.375 GM in D5W MINI-BAG PLUS 50 ML IV ONE (15:20)
[2021-08-20] MEDS ORDERED: PANTOPRAZOLE 40MG VIAL IV ONE (15:20)
[2021-08-20] MEDS ORDERED: PANTOPRAZOLE SODIUM 40 MG in D5W 50 ML IV SCH (16:00)
[2021-08-20] MEDS ORDERED: HOME MED LIST COMPLETE! XX SCH (16:05)
[2021-08-20] MEDS ORDERED: LR 1,000 ML IV ONE (16:20)
[2021-08-20] MEDS ORDERED: VANCOMYCIN HCL 1,000 MG, VIAL MATE ADAPTER 1 EACH in NS 250 ML IV SCH (16:20)
[2021-08-20] MEDS ORDERED: PIPERACILLIN/TAZOBACTAM SOD 3.375 GM in D5W MINI-BAG PLUS 50 ML IV SCH (16:20)
[2021-08-20] MEDS ORDERED: LEVALBUTEROL 1.25 MG/0.5 ML CONCENTRATE NEB NEB PRN (16:40)
[2021-08-20] MEDS ORDERED: NICOTINE 21MG/24HR 1 EA TRANSDERMAL TD ONE (17:10)
[2021-08-20 17:37] LABS: HEMATOCRIT 25.2 % (42.0-52.0); HEMOGLOBIN 8.1 g/dl (13.5-17.5); MEAN CORPUSCULAR HEMOGLOBIN 29.6 pg (27.0-33.0); MEAN CORPUSCULAR HGB CONC 32.1 g/dl (32.0-36.5); PLATELET COUNT, AUTOMATED 383 10^3/uL (150-450); RED BLOOD COUNT 2.74 10^6/uL (4.30-6.10); WHITE BLOOD COUNT 16.3 10^3/uL (4.0-10.0)
[2021-08-20 17:41] VITALS: BP 93/61
[2021-08-20 17:48] LABS: INR 1.09; PROTHROMBIN TIME 14.5 SECONDS (12.7-14.5)
[2021-08-20 17:49] LABS: PARTIAL THROMBOPLASTIN TIME 41.5 SECONDS (25.9-37.0)
[2021-08-20 17:56] VITALS: BP 95/60
[2021-08-20] MEDS ORDERED: VANCOMYCIN HCL 750 MG, VIAL MATE ADAPTER 1 EACH in NS 250 ML IV ONE (18:00)
[2021-08-20] MEDS ORDERED: VANCOMYCIN HCL 500 MG in D5W MINI-BAG PLUS 100 ML IV ONE (19:00)
[2021-08-20 19:04] VITALS: BP 129/78
[2021-08-20 19:29] VITALS: BP 101/63
[2021-08-20] MEDS: PANTOPRAZOLE 40MG VIAL IV SCH (19:48)
[2021-08-20] MEDS: SUCRALFATE SUSP 1GM/10ML UD PO SCH ×2 (19:48→20:01)
[2021-08-20] MEDS: LEVALBUTEROL 1.25 MG/0.5 ML CONCENTRATE NEB NEB SCH (20:01)
[2021-08-20 22:18] LABS: HEMATOCRIT 26.7 % (42.0-52.0); HEMOGLOBIN 8.7 g/dl (13.5-17.5); MEAN CORPUSCULAR HEMOGLOBIN 29.2 pg (27.0-33.0); MEAN CORPUSCULAR HGB CONC 32.6 g/dl (32.0-36.5); MEAN CORPUSCULAR VOLUME 89.6 fl (80.0-96.0); PLATELET COUNT, AUTOMATED 335 10^3/uL (150-450); RED BLOOD COUNT 2.98 10^6/uL (4.30-6.10); WHITE BLOOD COUNT 14.1 10^3/uL (4.0-10.0)
[2021-08-20] MEDS: PIPERACILLIN/TAZOBACTAM SOD 4.5 GM in D5W MINI-BAG PLUS 50 ML IV SCH (22:33)
[2021-08-21] VITALS (11 sets, daily range): BP systolic 77–104; BP diastolic 43–64; O2SAT 28
[2021-08-21] MEDS ORDERED: NS 250 ML IV ONE (00:25)
[2021-08-21] MEDS ORDERED: NS 500 ML IV ONE (02:05)
[2021-08-21] MEDS: NS 1,000 ML IV SCH ×2 (02:52→13:20)
[2021-08-21] MEDS: VANCOMYCIN HCL 1,000 MG, VIAL MATE ADAPTER 1 EACH in NS 250 ML IV SCH ×2 (02:52→11:00)
[2021-08-21 04:29] LABS: HEMATOCRIT 30.1 % (42.0-52.0); HEMOGLOBIN 9.9 g/dl (13.5-17.5); MEAN CORPUSCULAR HEMOGLOBIN 29.5 pg (27.0-33.0); MEAN CORPUSCULAR HGB CONC 32.9 g/dl (32.0-36.5); MEAN CORPUSCULAR VOLUME 89.6 fl (80.0-96.0); PLATELET COUNT, AUTOMATED 330 10^3/uL (150-450); RED BLOOD COUNT 3.36 10^6/uL (4.30-6.10); WHITE BLOOD COUNT 12.4 10^3/uL (4.0-10.0)
[2021-08-21] MEDS: PIPERACILLIN/TAZOBACTAM SOD 4.5 GM in D5W MINI-BAG PLUS 50 ML IV SCH ×2 (04:47→09:46)
[2021-08-21 04:58] LABS: ALBUMIN 1.6 GM/DL (3.2-5.2); ALT/SGPT 15 U/L (12-78); BLOOD UREA NITROGEN 10 MG/DL (7-18); CALCIUM LEVEL 8.6 MG/DL (8.8-10.2); CARBON DIOXIDE LEVEL 30 MEQ/L (21-32); CHLORIDE LEVEL 104 MEQ/L (98-107); CREATININE FOR GFR 0.38 MG/DL (0.70-1.30); GLOMERULAR FILTRATION RATE > 60.0 (>49); GLUCOSE, FASTING 98 MG/DL (70-100); POTASSIUM SERUM 4.4 MEQ/L (3.5-5.1); SODIUM LEVEL 139 MEQ/L (136-145); TOTAL PROTEIN 5.2 GM/DL (6.4-8.2)
[2021-08-21 05:31] LABS: NT-PRO BNP 1396 PG/ML (<125)
[2021-08-21] MEDS: LEVALBUTEROL 1.25 MG/0.5 ML CONCENTRATE NEB NEB SCH ×2 (07:42→11:42)
[2021-08-21] MEDS: PANTOPRAZOLE 40MG VIAL IV SCH (08:00)
[2021-08-21] MEDS: SUCRALFATE SUSP 1GM/10ML UD PO SCH ×2 (08:00→12:00)
[2021-08-21 10:28] LABS: HEMATOCRIT 31.6 % (42.0-52.0); HEMOGLOBIN 10.3 g/dl (13.5-17.5); MEAN CORPUSCULAR HEMOGLOBIN 29.3 pg (27.0-33.0); MEAN CORPUSCULAR HGB CONC 32.6 g/dl (32.0-36.5); PLATELET COUNT, AUTOMATED 349 10^3/uL (150-450); RED BLOOD COUNT 3.51 10^6/uL (4.30-6.10); WHITE BLOOD COUNT 12.2 10^3/uL (4.0-10.0)
[2021-08-21] MEDS ORDERED: ACETAMINOPHEN TAB 650MG DOSE (2X325MG) PO ONE (14:30)
[2021-08-21] MEDS ORDERED: CARA1TAB6 GT (15:33)
[2021-08-21] MEDS ORDERED: OMEP40CA4 GT (15:33)
[2021-08-21] MEDS ORDERED: AZIT500T5 GT (15:33)
[2021-08-21] MEDS ORDERED: CEFU50TA GT (15:33)
[2021-08-21] MEDS ORDERED: DOXY-350 GT (18:48)
== END 2021-08-21 15:11 | disposition left against medical advice (07) | DRG 871 ==
LOC: M ED 13:34 → EDBD 13:34 → M ED INP 16:16 → ENRESERV 16:50 → M PCU 18:54
PROVIDERS: ADMIT Internal Medicine; ATTEND Internal Medicine
PROC: 30233N1 Transfusion of Nonautologous Red Blood Cells into Peripheral Vein, Percutaneous Approach (ICD-10-PCS; principal; 2021-08-20)
PROC: 02HV33Z Insertion of Infusion Device into Superior Vena Cava, Percutaneous Approach (ICD-10-PCS; 2021-08-20)
DX: A41.89 Other specified sepsis (principal); J18.9 Pneumonia, unspecified organism; R57.9 Shock, unspecified; E46 Unspecified protein-calorie malnutrition; D62 Acute posthemorrhagic anemia; J44.0 Chronic obstructive pulmonary disease with (acute) lower respiratory infection; K92.2 Gastrointestinal hemorrhage, unspecified; R64 Cachexia; C32.9 Malignant neoplasm of larynx, unspecified; Z93.0 Tracheostomy status; R13.10 Dysphagia, unspecified; I48.0 Paroxysmal atrial fibrillation; F17.200 Nicotine dependence, unspecified, uncomplicated; M54.2 Cervicalgia; R26.81 Unsteadiness on feet; I10 Essential (primary) hypertension; F32.A Depression, unspecified; Z85.828 Personal history of other malignant neoplasm of skin; Z91.19 Patient's noncompliance with other medical treatment and regimen; Z79.01 Long term (current) use of anticoagulants; Z87.11 Personal history of peptic ulcer disease; Z86.14 Personal history of Methicillin resistant Staphylococcus aureus infection; Z79.899 Other long term (current) drug therapy